=== PATIENT | male | born 1955 | race Caucasian/White ===

== ENCOUNTER 2024-08-04 10:41 | Outpatient (NON) | payer MEDICARE, SELFPAY ==
--- OUTSIDE RECORDS SUMMARY | 2024-08-04 11:51 | XMS_ITS | Encounter Summary ---
Author Organization [facility] Address [facility] [place] [address] Care Team Providers Care Rug Cleaning Supervisor Name Role Phone Jr Penn MD Primary Care Provider [phone] Jr Penn MD Primary Care Provider [phone] Jr Penn MD Primary Care Provider [phone] Danielle Lindsey NP Primary Care Provider + Km Varner MD Unavailable Unavailable Encounter Details Date Type Department Care Team (Late st Contact Info) Description 08/22/2013 Abstract [facility] Conversion Md, Generic ConversionMD Social History Tobacco Use Types Packs/Day Years Used Date Smoking Tobacco: Never Assessed Sex and Gender Information Value Date Recorded Sex Assigned at Male 06/30/2024 11:27 AM REFRIGERATION TECH Legal Sex Male 7:32 PM CDT Gender Identity Not on file Sexual Orientation Not on file documented as of this encounter Plan of Treatment Upcoming Encounters Date Type Department Care Team (Late st Contact Info) Description 09/15/2024 11:00 AM CDT Office Visit [facility] [address] [place] [address] Danielle Lindsey NP [address] [facility] [address] [place] [address] documented as of this encounter Visit Diagnoses Not on filedocumented in this encounter Care Teams Rug Cleaning Supervisor Relationship Specialty Start Date End Date Jr Penn MD PCP - General 04/19/14 11/13/21 Jr Penn MD PCP - General 01/04/14 04/18/14 Jr Penn MD PCP - General 07/15/13 01/03/14 Danielle Lindsey NP [address] [facility] [address] [place] [address] PCP - General Nurse Practitioner [facility] 11/14/21 Km Varner MD [address] [facility] [address] [place] [address] Consulting Physician UROLOGY 03/18/22 03/15/23 documented as of this encounter
--- OUTSIDE RECORDS SUMMARY | 2024-08-04 11:51 | XMS_ITS | CONTINUITY OF CARE DOCUMENT ---
Author Name bam kuhn Address Unknown Organization [facility] Address [address] [facility] [address] [place] [address] Phone [phone] Care Team Providers Care Client Technical Specialist Name Role Phone Luis Felipe ANAYA, Ana Unavailable PJ ANAYA, GREGORY Hoyt Unavailable [phone] SHANIQUE ANAYA, SANDRA BYNUM Unavailable [phone] PROBLEMS Condition Status Date Provider Notes Family History of Hypertension: active Keila Renteria OIL WELL SERVICES DISPATCHER HTN active Yajaira Renteria OIL WELL SERVICES DISPATCHER Preoperative cardiovascular evaluation active Yajaira Renteria OIL WELL SERVICES DISPATCHER ENCOUNTERS Date Type Provider Location Encounter Diag nosis - In-person encounter Office Visit Deep Russell MD [place] [facility] Family History of Hypertension:HTNPreope rative cardiovascular evaluation VITAL SIGNS Date Observation Value Provider Body Mass Index (Ratio) 37.73 kg/m2 Katya Russell MD blood pressure, cuff size large Ke rri Carlos blood pressure, diastolic 86 mm[Hg] Ke rri Carlos blood pressure, systolic 136 mm[Hg] Modesta Gonzalez oxygen saturation, oximetry 97 % Eugenia Gonzalez respiratory rate E&M 18 /min Eugenia arenas pulse rate 92 /min Eugenia Gross lder weight E&M 263 [lb_av] Eugenia Gross lder height E&M 70 [in_i] Eugenia Caicedotimi lder ALLERGIES Allergy Name Onset Date Reaction Criticality Status CATS Low Criticality active PCN Low Criticality active HISTORY OF MEDICATION USE Medication Status Instructions Dates Provider Indications Com ments TESTIM GEL active use daily Eugenia Hammondeduarda LASIX 40 MG ORAL TABLET active one tab by mouth daily Eugenia Hammondeduarda LISINOPRIL 10 MG ORAL TABLET active ONE TAB. DAILY Eugenia Hammondeduarda SILDENAFIL CITRATE 20 MG ORAL TABLET active TAKE 1 TABLET NEEDED FOR SEXUAL ACTIVITY Eugenia Kendrickattiladianna #50, 50 days supply, Prescribed by SANDRA BAY, Filled 04/27/2020 SOCIAL HISTORY Date Observation Value Provider number of grandchildren Deep Renteria NP alcohol use, average drinks per day social Yajaira Renteria NP alcohol use yes Yajaira Ayon l NATALY social history E&M S moking History: P ashwin has never smoked. Yajaira Renteria NP social history reviewed E&M revi ewed - no changes required Yajaira Renteria NP drug use no Yajaira Betancourta l OIL WELL SERVICES DISPATCHER smoking status Never smoker Eugenia arredondo FAMILY HISTORY Family Member Condition Mother Negative FH of Coron caridad Artery Disease Father Family History of Hy pertension: INSURANCE PROVIDERS Payer name Policy type / Coverage type [place] red green party ID UHC MEDICARE COMPLETE HMO Other [id number] ADVANCE DIRECTIVES Name Date DISCUSSED - NO DECISION MADE TREATMENT PLAN Date Name Performer Cardiology Miguel Cervantes nt : B P today: 136/86 His updated medication list for this problem includes: Lasix 40 Mg Oral Tablet (Furosemide) ..... One tab by mouth daily Lisinopril 10 Mg Oral Tablet (Lisinopril) ..... One tab. daily Yajaira Renteria NP Cardiology Miguel Cervantes nt :The patient is not experiencing any symptoms and is low risk for upcoming orthopedic surgery. Yajaira Renteria NP HISTORY OF PROCEDURES Procedure Date Procedure Name Provider Procedure Notes S tatus EKG Deep Russell MD completed
--- OUTSIDE RECORDS SUMMARY | 2024-08-04 11:51 | XMS_ITS | Clinical Summary ---
Author Organization [facility] Address [address] [place] [address] Care Team Providers Care Ship Boss Name Role Phone Danielle Lindsey Genaro FOIL WRAPPER Primary Care Provider Allergies Active Allergy Reactions Criticality Noted Date Comments Cat Hair Standardized Allergenic Extract Shortness of breath High 05/02/2020 Hydroxychloroquine Rash High 11/09/2023 Metformin Diarrhea Medium 10/27/2023 Penicillins Anaphylaxis High 01/11/2023 All cillins Medications lisinopriL (PRINIVIL,ZESTRI L) 10 mg tabletIndication s:hypertension Take 1 tablet (10 mg total) by mouth every morning 0 Active rosuvastatin (CRESTOR) 10 mg tabletIndication s:hyperlipidemia Take 1 tablet (10 mg total) by mouth every morning 3 Active Testim 50 mg/5 gram (1 %)Indications:ho rmone replacement Place 1 each on the skin every morning 0 Active metFORMIN (GLUCOPHAGE) 500 mg tabletIndication s:type 2 diabetes mellitus Take 2 tablets (1,000 mg total) by mouth narrow gauge brakeman before breakfast 4 Active clobetasoL (TEMOVATE) 0.05 % ointment APPLY TO AREAS OF PSORIASIS ON BODY TWICE A DAY NEEDED FOR FLARES. AVOID FACE, ARMPITS AND GROIN 4 Active calcipotriene (DOVONOX) 0.005 % solutionIndicati ons:Plaque Psoriasis Apply 1 Application topically 2 (two) times a day 4 Active ofloxacin (FLOXIN) 0.3 % otic solution Administer 5 drops into the left ear 2 (two) times a day Start 1 week after surgery and continue until follow up. 15 mL 3 4 Active ciprofloxacin-de xAMETHasone (CIPRODEX) otic suspension Administer 4 drops into the left ear 2 (two) times a day 7.5 mL 3 4 Active clindamycin-chris oyl peroxide (BENZACLIN) gel Apply topically 2 (two) times a day 4 Active Trulicity 0.75 mg/0.5 mL pen injector Inject 0.5 mL (0.75 mg total) under the skin 2 (two) times a week 4 Active methotrexate 2.5 mg tablet Take 3 tablets (7.5 mg total) by mouth once a week Active predniSONE (DELTASONE) 5 mg tablet Take 2 tablets (10 mg) by mouth daily 4 Active Active Problems Problem Noted Date Diagnosed Date Conductive hearing loss of l eft ear with unrestricted hearing of right ear 07/21/2023 Left chronic otitis media 07/21/2023 Lumbago 02/18/2015 Essential hypertension 02/18/2015 Polymyalgia rheumatica 02/18/2015 Edema of lower extremity 02/18/2015 Encounters Date Type Department Care Team Description 07/17/2024 11:20 AM CALENDER LET OFF OPERATOR Office [facility] [address] [facility] [address] [facility] [address] [place] [address] Codi Smith MD Obstructive sleep apnea syndrome (Primary Dx); Intolerance of continuous positive airway pressure (CPAP) ventilation from Last 3 Months Immunizations Immunization Administration Dates Next Due Influenza, Quadrivalent, Hig h Dose, Preservative Free, Intrr 02/25/2022 Influenza, Quadrivalent, Spl it, Preservative Free, Intramuscular 03/06/2020 Influenza, Unspecified 01/26/2024,02/05/2021 Visual IQ SARS-CoV-2 Monovalent Vaccination (12+ Yrs) PURPLE 01/26/2024,07/29/2020 Pneumococcal Conjugate PCV 13 02/05/2021 Pneumococcal Conjugate Pcv20 02/24/2022 Tdap 07/29/2013 ZOSTER Recombinant 08/08/2022,06/09/2022 Surgical History Surgery Date Site/Laterality Comments 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 2-4 times a month 07/21/2023 Q2: How many drinks containi ng alcohol do you have on a typical day when you are drinking? 1 or 2 07/21/2023 Q3: How often do you have si x or more drinks on one occasion? Never 07/21/2023 Personal Safety Answer Date Recorded Have you ever been in or are you currently in a harmful physical or emotional relationship or is someone making you feel afraid or unsafe? Denies 07/21/2023 Sex and Gender Information Value Date Recorded Sex Assigned at Not on file Legal Sex Male 5:53 AM CALENDER LET OFF OPERATOR Gender Identity Not on file Sexual Orientation Not on file Obstetrics History Last Filed Vital Signs Vital Sign Reading Time Taken Comments Blood Pressure 134/70 07/21/2023 1:20 PM CALENDER LET OFF OPERATOR Pulse 87 07/21/2023 1:20 PM CALENDER LET OFF OPERATOR Temperature 36.1 C (97 F) 07/21/2023 12:50 PM CALENDER LET OFF OPERATOR Respiratory Rate 24 07/21/2023 1:20 PM CALENDER LET OFF OPERATOR Oxygen Saturation 94% 07/21/2023 1:20 PM CALENDER LET OFF OPERATOR Inhaled Oxygen Concentration - - Weight 118.8 kg (261 lb 12.8 oz) 2024 11:06 AM CALENDER LET OFF OPERATOR Height 177.8 cm (5' 10 ) 07/17/2024 11: 06 AM CALENDER LET OFF OPERATOR Body Mass Index 37.56 07/17/2024 11:06 AM CALENDER LET OFF OPERATOR Plan of Treatment Health Maintenance Due Date Last Done Comments Colon Cancer Screening-Colonoscopy 1955 Depression Screening 1955 Hepatitis C Screening 1955 Prostate Cancer Screening-PSA 1955 Hepatitis B Screening 07/23/1973 Well Visit 65+ 07/23/2020 Covid-19 Vaccine (2023-2 5 season) 2024 01/26/2024, 03/13/2022, 10/23/2021, Additional history exists Fall Risk Assessment 07/20/2024 07/21/2023 DTaP/Tdap/Td Vaccine (3 - Td or Tdap) 03/29/2034 03/29/2024, 07/29/2013 Pneumococcal vaccine 65+ Completed 02/24/2022, 01/16 Zoster Vaccine Completed 08/08/2022, 06/09/2022 Influenza Vaccine Completed 01/26/2024, , 02/05/2021, Additional history exists Medical Devices Implanted Type Area Senior Gl Accountant Device Identifier Shelf Expiration Date Model / Serial / Lot Implantech Alliedsil 3x2in Nonreinforced Permanent Implantable Thk.04in 23-700-40 - [id number] Implanted:Qty: 1 on 02/15/2023 by Ino Laird MD at [facility] Left: Ear Implantech [id number] 01/20/2027 23-700-40 / / [id number] [employer] Prosth Ossicular 3.0mm 0.75-5.75mm Ti Cntr [place] Concise Prtl 655-075 - [id number] Implanted:Qty: 1 on 07/21/2023 by Ino Laird MD at [facility] Left: Ear [employer] [id number] 07/16/2027 655-075 / / [id number] Insurance [facility] MEDICARE ADVANTAGE UHC MEDICARE ADVANTAGE Care Teams Ship Boss Relationship Specialty Start Date End Date Danielle Lindsey NP [address] [address] PCP - General Family Medicine 05/04/24
--- OUTSIDE RECORDS SUMMARY | 2024-08-04 11:51 | XMS_ITS | Encounter Summary ---
Author Organization [facility] Address [facility] [place] [address] Care Team Providers Care System Safety Engineer Name Role Phone Jr Penn MD Primary Care Provider [phone] Jr Penn MD Primary Care Provider [phone] Jr Penn MD Primary Care Provider [phone] Danielle Lindsey NP Primary Care Provider + Km Varner MD Unavailable Unavailable Encounter Details Date Type Department Care Team (Late st Contact Info) Description 08/16/2013 Abstract [facility] Conversion Md, Generic ConversionMD Social History Tobacco Use Types Packs/Day Years Used Date Smoking Tobacco: Never Assessed Sex and Gender Information Value Date Recorded Sex Assigned at Male 06/30/2024 11:27 AM TITLE CLERK Legal Sex Male 7:32 PM CDT Gender Identity Not on file Sexual Orientation Not on file documented as of this encounter Plan of Treatment Upcoming Encounters Date Type Department Care Team (Late st Contact Info) Description 09/15/2024 11:00 AM CDT Office Visit [facility] [address] [place] [address] Danielle Lindsey NP [address] [facility] [address] [place] [address] documented as of this encounter Visit Diagnoses Not on filedocumented in this encounter Care Teams System Safety Engineer Relationship Specialty Start Date End Date Jr Penn MD PCP - General 04/19/14 11/13/21 Jr Penn MD PCP - General 01/04/14 04/18/14 Jr Penn MD PCP - General 07/15/13 01/03/14 Danielle Lindsey NP [address] [facility] [address] [place] [address] PCP - General Nurse Practitioner [facility] 11/14/21 Km Varner MD [address] [facility] [address] [place] [address] Consulting Physician UROLOGY 03/18/22 03/15/23 documented as of this encounter
--- OUTSIDE RECORDS SUMMARY | 2024-08-04 11:51 | XMS_ITS | Clinical Summary ---
Author Organization [facility] Address [facility] [place] [address] Care Team Providers Care Driver Trainer Name Role Phone Rosalia Daniellericardo Dominguez NP Primary Care Provider + Allergies Active Allergy Reactions Criticality Noted Date Comments Amoxicillin Anaphylaxis,GI Upset High 08/31/2019 Cat Dander Shortness of Breath High 05/02/2020 Dander Hives,Rash Low 12/28/2016 Hydroxychloroquine Rash High 11/09/2023 Metformin Diarrhea Medium 10/27/2023 Penicillins Anaphylaxis High 05/02/2020 Medications ibuprofen 600 MG tablet 2020 Active clobetasol (TEMOVATE) 0.05 % ointment APPLY TO AREAS OF PSORIASIS ON BODY TWICE A DAY NEEDED FOR FLARES. AVOID FACE, ARMPITS AND GROIN 2023 Active clobetasol (TEMOVATE) 0.05 % external solution APPLY TO SCALP TWICE A DAY FOR 2 WEEKS, THEN TWICE A DAY ON THE WEEKENDS. DO NOT USE DAILY. Active Blood Glucose Monitoring Suppl (BLOOD GLUCOSE MONITOR SYSTEM) w/Device KitIndications:Type 2 diabetes mellitus with diabetic neuropathy, without long-term current use of insulin ([facility]) BID for 1 week then daily (dispense what insurance covers) 1 kit 2023 Active Glucose Blood (IGLUCOSE TEST STRIPS) test stripIndications:Type 2 diabetes mellitus with diabetic neuropathy, without long-term current use of insulin ([facility]) BID for 1 week then daily (dispense what insurance covers) 100 strip 2 2023 Active Lancets Ultra Thin 30G MiscIndications:Type 2 diabetes mellitus with diabetic neuropathy, without long-term current use of insulin ([facility]) BID for 1 week then daily (dispense what insurance covers) 100 each 2 2023 Active sildenafil (VIAGRA) 50 MG tabletIndications:Test icular hypofunction Take 1 tablet (50 mg total) by mouth daily as needed for Erectile Dysfunction. 10 tablet 5 2023 Active lisinopril (PRINIVIL) 10 MG tabletIndications:Esse ntial (primary) hypertension Take 1 tablet (10 mg total) by mouth daily. 90 tablet 3 2023 Active rosuvastatin (CRESTOR) 10 MG tabletIndications:Pure hypercholesterolemia Take 1 tablet (10 mg total) by mouth daily. 90 tablet 3 2023 Active clindamycin-benzoyl peroxide (BENZACLIN) gel Apply topically 2 (two) times daily. 2023 Active methotrexate (TREXALL) 2.5 MG tablet Take 3 tablets (7.5 mg total) by mouth once a week. Active tiZANidine (ZANAFLEX) 4 MG tabletIndications:E Commerce Manager dereck pain of both shoulders Take 1 tablet (4 mg total) by mouth every 8 (eight) hours as needed. 30 tablet 2024 Active Additional Information Patient not taking.Reported on 08/02/2024 testosterone (ANDROGEL) 50 MG of testosterone/5 GM (1%) Gel gelIndications:Hypogon adism in male PLACE 1 PACKET (50 MG OF TESTOSTERONE TOTAL) ONTO THE SKIN DAILY. 150 g 2 2024 Active HYDROcodone-acetaminop hen (NORCO) 5-325 MG tabletIndications:E Commerce Manager dereck Pain Take 1-2 tablets by mouth every 8 (eight) hours as needed for Pain. Indications: Chronic Pain 40 tablet 2024 Active dulaglutide (TRULICITY) 1.5 MG/0.5ML injectionIndications:T ype 2 diabetes mellitus with diabetic neuropathy, without long-term current use of insulin ([facility]) INJECT 1.5 MG INTO THE SKIN ONCE A WEEK. 2 mL 2 2024 Active Calcipotriene (DOVONEX) 0.005 % topical solution APPLY TO AFFECTED AREAS OF SCALP TWICE DAILY FOR 2 WEEKS, THEN APPLY TWICE DAILY WEDNESDAY-08/02 Discontinued ciprofloxacin-dexameth asone (CIPRODEX) otic suspension Place 4 drops in ear(s) 2 (two) times daily. 08/02 Discontinued predniSONE (DELTASONE) 2.5 mg tablet Take 3 tablets (7.5 mg total) by mouth daily. 08/02 Discontinued testosterone (ANDROGEL) 50 MG of testosterone/5 GM (1%) Gel gelIndications:Hypogon adism in male PLACE 1 PACKET (50 MG OF TESTOSTERONE TOTAL) ONTO THE SKIN DAILY. 150 g 3 07/31 Discontinued dulaglutide (TRULICITY) 1.5 MG/0.5ML injection INJECT 1.5 MG INTO THE SKIN ONCE A WEEK. 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 07/12/2024 Conductive hearing loss of l eft ear with unrestricted hearing of right ear 07/21/2023 Left chronic otitis media 07/21/2023 Eczema 05/20/2023 H/O tympanomastoidectomy 02/17/2023 Pure hypercholesterolemia 08/19/2022 Type 2 diabetes mellitus ([facility]) 08/11 Morbid (severe) obesity due to excess calories 1 05/18/2021 Osteoarthrosis 08/29/2021 Family history of cardiovascular disease 020 Essential (primary) hypertension 12/28/2016 Edema of lower extremity 02/18/2015 Lumbago 02/18/2015 Polymyalgia rheumatica ([facility]) 01/18/2015 Testicular hypofunction 12/26/2012 Resolved Problems Problem Noted Date Diagnosed Date Resolved Date Acute torn meniscus 08/29/2021 03/18/20 22 Encounter for preprocedural cardiovascular examination 05/02/2020 09/01/2021 Family history of hypertension 05/02/2020 01/26/2024 Encounters Date Type Department Care Team Description 08/02/2024 11:40 AM CDT Office Visit [facility] [address] [place] [address] Danielle Lindsey, NATALY Knee Pain (Pt here for ongoing knee pain.) 08/02/2024 Travel 07/27/[address] [address] Danielle Lindsey, NATALY Medication Request; Joint Pain 2024 Scan [facility] Scanned, [facility] 07/21/2024 Scan [facility] Scanned, [facility] 07/19/2024 Scan [facility] Scanned, [facility] 07/17/2024 Scan [facility] Scanned, [facility] 07/12/2024 9:40 AM MOLDING MACHINE OPERATOR Office Visit [address] [address] Danielle Lindsey, NATALY Follow Up (Pt here today for leg edema.) 07/11/2024 12:10 PM MOLDING MACHINE OPERATOR Laboratory Only [facility] - [address] [address] Kwabena Maritn MD 07/11/2024 Travel 06/30/2024 11:40 AM MOLDING MACHINE OPERATOR Office Visit [address] [address] Danielle Lindsey, NATALY Shoulder Pain (Rt, NKI, couple months) 06/30/2024 Travel 06/29/2024 10:45 AM MOLDING MACHINE OPERATOR - 06/29/2024 11:59 PM MOLDING MACHINE OPERATOR Hospital Encounter [facility] [address] [place] [address] Zane Salazar MD Discharge Disposition: Home or Self Care (Routine Discharge) 06/29/2024 Orders Only [facility] [address] [place] [id number] Zane Salazar MD 06/29/2024 Orders Only [facility] [address] [place] [address] Zane Salazar MD 06/29/2024 Travel from Last 3 Months Immunizations Name Administration Dates Next Due Fluzone 6 Months+ Quad (0.5 mL Prefilled Syringe) 03/06/2020 Fluzone High Dose - >Age 65 (Prefilled Syringe) 02/08/2023 Influenza Adult (Generic) 01/26/2024,04/2022,02/05/2021,2019 PFIZER COVID-19 (12+) MRNA, LNP-S, PF, EFREN-SUCROSE, 30 MCG/0.3 ML (COMIRNATY) 02/08/2023 PFIZER COVID-19 (MORRISSEY CAP), MRNA, LNP-S, PF, 30 MCG/0.3 ML EFREN-SUCROSE, IM 10/23/2021 PFIZER COVID-19 (ORIGINAL FORMULATION, PURPLE CAP) mRNA, LNP-S, PF, 30 MCG/0.3 ML DOSE 01/26/2024,02/19/2021,08/09/2020,2020,07/19/2020 PFIZER COVID-19 BIVALENT (12 +) mRNA, LNP-S, PF, 30 MCG/0.3 ML DOSE 03/13/2022 Pneumococcal (Prevnar 13) 02/05/2021 Pneumococcal (Prevnar 20) 02/24/2022 RSV VACCINE, UNSPECIFIED 03/29/2024 Shingrix 08/08/2022,06/09/2022 Tdap (Adacel) 03/29/2024 Tdap (Generic) 07/29/2013 Family History Medical History Relation Comments Cancer Father Hypertension Father Prostate Cancer Father Cancer Maternal Grandfather No Known Problems Mother Relation Status Comments Father Maternal Grandfather Mother Social History Tobacco Use Types Packs/Day Years Used Date Smoking Tobacco: Never Passive Smoke Exposure: Past Smokeless Tobacco: Never Tobacco Cessation:Counseling Given: No Alcohol Use Standard Drinks/Week Comments Yes 25 (1 standard drink = 0.6 oz pu re alcohol) couple x/week PHQ-2 Answer Date Recorded Patient Health Questionnaire-2 Score 0 06/30/2024 Sex and Gender Information Value Date Recorded Sex Assigned at Male 06/30/2024 11:27 AM MOLDING MACHINE OPERATOR Legal Sex Male 7:32 PM CDT Gender Identity Not on file Sexual Orientation Not on file Last Filed Vital Signs Vital Sign Reading Time Taken Comments Blood Pressure 134/72 08/02/2024 12:10 PM CDT Pulse 81 08/02/2024 11:37 AM CDT Temperature 37.2 C (98.9 F) 08/02/2024 11:37 AM CDT Respiratory Rate 18 08/02/2024 11:37 AM CDT Oxygen Saturation 96% 08/02/2024 11:37 AM CDT Inhaled Oxygen Concentration - - Weight 115.7 kg (255 lb) 08/02/2024 11:37 AM CDT Height 177.8 cm (5' 10 ) 08/02/2024 11:37 AM CDT Body Mass Index 36.59 08/02/2024 11:37 AM CDT Plan of Treatment Upcoming Encounters Date Type Department Care Team (Late st Contact Info) Description 09/15/2024 11:00 AM CDT Office Visit [facility] [address] [place] [phone] Danielle Lindsey NP [address] [facility] [address] [place] [address] Health Maintenance Due Date Last Done Comments Kidney Health Evaluation 1955 Hepatitis C 07/23/1973 Annual Medicare Wellness Visit 07/23/2020 COVID-19 Vaccine ( season) 2024 01/26/2024, 02/08/2023, 03/13/2022, Additional history exists Lipid Panel 09/15/2024 09/16/2023, 07/16, 08/04/2022, Additional history exists Hemoglobin A1C 11/01/2024 05/03/2024, 01/15, 10/27/2023, Additional history exists Diabetes: Retinopathy Eye Exam 07/18/2025 07/19/2023 Colorectal Cancer Screening Colonoscopy (10 Years) 04/20/2027 04/20/2017 DTaP, Tdap and Td Vaccines (3 - Td or Tdap) 03/29/2034 03/29/2024, 07/29/2013 Pneumococcal Vaccine: 65+ Years Completed 02/24/2022, 02/05/2021 Zoster Vaccines Completed 08/08/2022, 06/09/2022 Influenza Adult Completed 01/26/2024, 01/16, 02/25/2022, Additional history exists RSV Immunization or 60+ Years Completed 03/29/2024 PHQ-2 (Physician [place]) Completed 06/30/2024 Meningococcal B Vaccine Aged Out No l onger eligible based on patient's age to complete this topic Meningococcal Vaccine Aged Out No estella cristina eligible based on patient's age to complete this topic RSV Immunizations Under 20 Months Aged Out No longer eligible based on patient's age to complete this topic Procedures Procedure Name Priority Date/Time Associated Diagnosis Comments PROSTATIC SPECIFIC ANTIGEN Routine 07/11/2024 10:43 AM MOLDING MACHINE OPERATOR COMPREHENSIVE METABOLIC PANEL Routine 06/29/2024 10:55 AM MOLDING MACHINE OPERATOR Hypogonadism male HEMATOCRIT Routine 06/29/2024 10:55 AM MOLDING MACHINE OPERATOR Hypogonadism male ESTRADIOL Routine 06/29/2024 10:55 AM MOLDING MACHINE OPERATOR Hypogonadism male TESTOSTERONE, TOTAL Routine 06/29/2024 10:55 AM MOLDING MACHINE OPERATOR Hypogonadism male HEMOGLOBIN, GLYCOSYLATED Routine 05/03/2024 Type 2 diabetes mellitus with diabetic neuropathy, without long-term current use of insulin ([facility]) LIPID PANEL Routine 09/16/2023 9:01 AM CDT Pure hypercholesterolemia DIABETIC RETINOPATHY EXAM (NEGATIVE)(SCAN ORDER) Routine 07/19/2023 COLONOSCOPY GENERIC (SCAN ORDER) Routine 04/20/2017 12:00 AM MOLDING MACHINE OPERATOR from Last 3 Months or Most Recently Relevant to Health Maintenance Results * PROSTATIC SPECIFIC ANTIGEN (07/11/2024 10:43 AM MOLDING MACHINE OPERATOR) PSA 1.40 <4.0 ng/ml 07/11/2024 11:57 AM MOLDING MACHINE OPERATOR [facility] Comment: Test was performed using the Siemens method. Results obtained with other assay methods or kits cannot be used interchangeably with results obtained by the Siemens method. 07/11/2024 10:4 3 AM MOLDING MACHINE OPERATOR Kwabena Martin MD LABORATORY Final Result [facility] [address] [place] [address], [place] [phone] * (ABNORMAL) COMPREHENSIVE METABOLIC PANEL (06/29/2024 10:55 AM MOLDING MACHINE OPERATOR) Pathologist [facility] GLUCOSE 263(H) 70 - 99 MG/DL 06/29/2024 12:00 PM [facility] BUN 23(H) 7 - 18 MG/DL 06/29/2024 12:00 PM [facility] CREATININE S/P/B 1.00 0.7 - 1.3 MG/DL 06/29/2024 12:00 PM [facility] SODIUM S/P/B 139 136 - 145 MMOL/L 06/29/2024 12:00 PM [facility] POTASSIUM S/P/B 4.7 3.5 - 5.1 MMOL/L 06/29/2024 12:00 PM [facility] CHLORIDE S/P/B 103 100 - 108 MMOL/L 06/29/2024 12:00 PM [facility] CO2 27.2 21 - 32 MMOL/L 06/29/2024 12:00 PM [facility] CALCIUM S/P/B 9.6 8.5 - 10.1 MG/DL 06/29/2024 12:00 PM [facility] BILIRUBIN TOTAL S/P/B 0.4 0.2 - 1.2 MG/DL 06/29/2024 12:00 PM [facility] Comment: THIS ASSAY IS NOT RECOMMENDED FOR PATIENTS UNDERGOING TREATMENT WITH ELTROMBOPAG DUE TO THE POTENTIAL FOR FALSELY ELEVATED RESULTS. TOTAL PROTEIN S/P/B 6.8 6.4 - 8.2 G/DL 06/29/2024 12:00 PM [facility] ALBUMIN S/P/B 3.6 3.4 - 5.0 G/DL 06/29/2024 12:00 PM [facility] AST 20 15 - 37 U/L 06/29/2024 12:00 PM [facility] ALT 43 16 - 60 U/L 06/29/2024 12:00 PM [facility] ALKALINE PHOSPHATASE S/P/B 53 50 - 136 U/L 06/29/2024 12:00 PM [facility] ANION GAP 8.8 5 - 15 MMOL/L 06/29/2024 12:00 PM [facility] BUN CREATININE RATIO 23.0 6 - 26 06/29/2024 12:00 PM [facility] A/G RATIO 1.1 1.0 - 2.0 RATIO 06/29/2024 12:00 PM [facility] GFR ESTIMATE 82(L) >90 ML/MIN/1.7 3 M2 06/29/2024 12:00 PM [facility] Comment: NOTE: eGFR is not calculated for patients <18 years of age. This is an estimated GFR calculation using the new CKD EPI creatinine equation without race and so does not require a correction factor for race. This estimated GFR should not be used for calculating drug doses. 06/29/2024 10:5 5 AM MOLDING MACHINE OPERATOR us Zane Salazar MD LABORATORY Final Res ult [facility] [address] [place] [address], [place] [phone] * HEMATOCRIT (06/29/2024 10:55 AM MOLDING MACHINE OPERATOR) HCT 49.7 43.0 - 54.0 % 06/29/2024 11:31 AM MOLDING MACHINE OPERATOR [facility] 06/29/2024 10:5 5 AM MOLDING MACHINE OPERATOR Zane Salazar MD LABORATORY Final Res ult [facility] [address] [place] [address], * (ABNORMAL) ESTRADIOL (06/29/2024 10:55 AM MOLDING MACHINE OPERATOR) Pathologist [facility] ESTRADIOL (E2) 84(H) <=39 pg/mL 07/04/2024 3:44 AM MOLDING MACHINE OPERATOR [facility] Comment: Reference range established on post-pubertal patient population. No pre-pubertal reference range established using this assay. For any patients for whom low Estradiol levels are anticipated (e.g. males, pre-pubertal children, and hypogonadal/post-menopausal females), the [employer] Estradiol, Ultrasensitive, LCMSMS assay is recommended (order code 51571). Please note: Patients being treated with the drug fulvestrant [Faslodex(R)] have demonstrated significant interference in immunoassay methods for estradiol measurement. The cross reactivity could lead to falsely elevated estradiol test results leading to an inappropriate clinical assessment of estrogen status. [facility] order code [id number], Ultrasensitive LC/MS/MS demonstrates negligible cross reactivity with fulvestrant. Test Performed by [facility], [facility], [address] [place], [place] Romeo Michaud M.D., Ph.D., Director of Laboratories , [place] [id number] 06/29/2024 10:5 5 AM MOLDING MACHINE OPERATOR Zane Salazar MD LABORATORY Final Res ult [facility] [address] [place], [place] , [place] [phone] * TESTOSTERONE, TOTAL (06/29/2024 10:55 AM MOLDING MACHINE OPERATOR) TESTOSTERONE TOTAL 633 250 - 1,100 ng/dL 07/03/2024 11:54 AM MOLDING MACHINE OPERATOR [facility] Comment: Men with clinically significant hypogonadal symptoms and testosterone values repeatedly in the range of the 200-300 ng/dL or less, may benefit from testosterone treatment after adequate risk and benefits counseling. For additional information, please refer to http://education.[facility]/faq/ [email or web address] (This link is being provided for informational/ educational purposes only.) This test was developed and its analytical performance characteristics have been determined by [employer] [place], [place]. It has not been cleared or approved by the U.S. Food and Drug Administration. This assay has been validated pursuant to the CLIA regulations and is used for clinical purposes. Test Performed by [facility], [facility], [address] [place] [address] Romeo Michaud M.D., Ph.D., Director of Laboratories , CLIA [id number] 06/29/2024 10:5 5 AM MOLDING MACHINE OPERATOR Zane Salazar MD LABORATORY Final Res ult [facility] [address] , [place] [phone] * A1C (BACK OFFICE) (05/03/2024) HGB A1C 8.9 % DEVON HUDSON ([id number]), ANABEL 05/03/2024 Danielle Lindsey NP LABORATORY Final Re sult [facility]-ST[facility]EN HUDSON ([id number]), [place] [address] [place] [id number], * LIPID PANEL (09/16/2023 9:01 AM CDT) CHOLESTEROL 135 <200 MG/DL 09/16/2023 10:02 AM CDT [facility] TRIGLYCERIDES 68 <150 MG/DL 09/16/2023 10:02 AM T [facility] HDL 43 >40.0 MG/DL 09/16/2023 10:02 AM T [facility] LDL (CALCULATED) 78 <100 MG/DL 09/16/19 10:02 AM T [facility] NON HDL CHOLESTEROL 92 <130 MG/DL 09/15 10:02 AM T [facility] Comment: NOTE: WHEN THE TRIGLYCERIDES ARE >200 mg/dL, NON HDL C IS A SECONDARY TARGET OF THERAPY, WITH A GOAL 30 mg/dL HIGHER THAN THE IDENTIFIED LDL C GOAL. CHOL/HDL RATIO 3.1 0.0 - 4.5 09/16/2023 10:02 AM T [facility] VLDL CALCULATION 14 5 - 55 MG/DL 09/16/2023 10:02 AM [facility] LIPID INTERPRETATION 09/16/2023 10:02 AM [facility] Comment: [facility] REPORT RECOMMENDATIONS: ADULT CHILD LOW RISK: CHOLESTEROL <200 <170 TRIGLYCERIDE <150 --- HDL >=60 --- LDL <100 <110 BORDERLINE: CHOLESTEROL 200-239 170-199 TRIGLYCERIDE 150-199 --- HDL 40-59 --- LDL 100-159 110-129 HIGH RISK: CHOLESTEROL >=240 >=200 TRIGLYCERIDE >=200 --- HDL <40 --- LDL >=160 >=130 09/16/2023 9:01 AM CDT Danielle iLndsey NP LABORATORY Final Re sult [facility] () [facility] [address] [place] [address], [place] [phone] * DIABETIC RETINOPATHY EXAM (NEGATIVE) (07/19/2023) us Doc [facility] Scanned SCANNING Final Resu lt [facility] * COLONOSCOPY (04/20/2017 12:00 AM MOLDING MACHINE OPERATOR) 04/20/2017 us Documents Scanned SCANNING Final Result Performing Organization Address [facility]/ZIP Co de Phone Number FRANKLIN-STIVEN SUBRAMANIAN from Last 3 Months or Most Recently Relevant to Health Maintenance Insurance [place] [address] Care Teams Driver Trainer Relationship Specialty Start Date End Date Danielle Lindsey NP [address] [facility] [address] [place] [address] PCP - General Nurse Practitioner Family 11/14/21
--- OUTSIDE RECORDS SUMMARY | 2024-08-04 11:51 | XMS_ITS | Referral Summary ---
Author Organization [facility] Address [address] [place] [address] Care Team Providers Care Banana Grader Name Role Phone Danielle Lindsey Genaro SENIOR SOLUTIONS ARCHITECT Primary Care Provider Encounters Date Type Department Care Team Description 07/17/2024 11:20 AM POWER HAIR CLIPPER Office Visit [facility]) - [facility] [address] [facility] Building [address] [place] [address] Codi Smith MD Obstructive sleep apnea syndrome (Primary Dx); Intolerance of continuous positive airway pressure (CPAP) ventilation from Last 3 Months Allergies Active Allergy Reactions Criticality Noted Date [...] 2 tablets (1,000 mg total) by mouth technical solution architect before breakfast 4 Active clobetasoL (TEMOVATE) 0.05 [...] rheumatica 02/18/2015 Edema of lower extremity 02/18/2015 Immunizations Immunization Administration Dates Next Due Influenza, Quadrivalent, Hig h Dose, Preservative Free, Intrr 02/25/2022 Influenza, Quadrivalent, Spl it, Preservative Free, Intramuscular 03/06/2020 Influenza, Unspecified 01/26/2024,02/05/2021 Propanc SARS-CoV-2 Monovalent Vaccination (12+ Yrs) PURPLE 01/26/2024,07/29/2020 Pneumococcal Conjugate PCV 13 02/05/2021 Pneumococcal Conjugate Pcv20 02/24/2022 Tdap 07/29/2013 ZOSTER Recombinant 08/08/2022,06/09/2022 Social History Tobacco Use Types Packs/Day Years [...] on file Legal Sex Male 5:53 AM POWER HAIR CLIPPER Gender Identity Not on file Sexual Orientation Not on file Last Filed Vital Signs Vital Sign Reading Time Taken Comments Blood Pressure 134/70 07/21/2023 1:20 PM POWER HAIR CLIPPER Pulse 87 07/21/2023 1:20 PM POWER HAIR CLIPPER Temperature 36.1 C (97 F) 07/21/2023 12:50 PM POWER HAIR CLIPPER Respiratory Rate 24 07/21/2023 1:20 PM POWER HAIR CLIPPER Oxygen Saturation 94% 07/21/2023 1:20 PM POWER HAIR CLIPPER Inhaled Oxygen Concentration - - Weight 118.8 kg (261 lb 12.8 oz) 2024 11:06 AM POWER HAIR CLIPPER Height 177.8 cm (5' 10 ) 07/17/2024 11: 06 AM POWER HAIR CLIPPER Body Mass Index 37.56 07/17/2024 11:06 AM POWER HAIR CLIPPER Plan of Treatment Not on file Medical Devices Implanted Type Area Seed Expert Device Identifier Shelf Expiration Date Model / Serial / Lot Implantech [employer] 3x2in Nonreinforced Permanent Implantable Thk.04in - [id number] Implanted:Qty: 1 on 02/15/2023 by Ino Laird MD at [facility] Left: Ear Implantech [id number] 01/20/2027 / / [id number] [employer] Prosth Ossicular 3.0mm 0.75-5.75mm Ti Cntr [place] Concise Prtl 655-075 - [id number] Implanted:Qty: 1 on 07/21/2023 by Ino Laird MD at [facility] Left: Ear [employer] [id number] 07/16/2027 [id number] / / [id number] Insurance [facility] MEDICARE ADVANTAGE [facility] MEDICARE ADVANTAGE Care Teams Banana Grader Relationship Specialty Start Date End Date Danielle Lindsey NP [address] [place] [address] PCP - General Family Medicine 05/04/24
--- OUTSIDE RECORDS SUMMARY | 2024-08-04 11:51 | XMS_ITS | Clinical Summary ---
Author Organization [facility] Address [address] [place] [address] Care Team Providers Care Instrumentation Tech Name Role Phone Jr Penn MD Primary Care Provider [phone] Source Comments [facility],non-owned Affiliates and Associated Physician Practices is amultiple site organization consisting of ambulatory clinics and hospital sitesin [place], [place], [place] and [place]. This disclosure is being madepursuant to the Care Everywhere program and may not contain all information available regarding this patient. Last updated 18.[facility] 8aweek Allergies Active Allergy Reactions Criticality Noted Date Comments Amoxicillin Anaphylaxis,GI Discomfort High 0 Cat Hair Extract Shortness of Breath High 05/02/2020 Penicillins Anaphylaxis High 10/16/2020 Medications * Be aware that medications may not be up to date on this document. Alwaysverify current medications with the patient. Medication Sig Dispensed Refills Start Date End Date Status sildenafil (REVATIO) 20 MG tablet TAKE 1 TABLET NEEDED FOR SEXUAL ACTIVITY 04/27/2020 Active testosterone (ANDROGEL;TESTIM) 50 MG/5GM (1%) gel Use 1 g as instructed once daily 09/02/2020 Active LISINOPRIL PO Take 1 tablet by mouth once daily Active ibuprofen (MOTRIN) 600 MG tablet Take 1 tablet by mouth as needed Active Active Problems No known active problems Immunizations Name Administration Dates Next Due Covid Pfizer primary monoval ent 12+ yr 0.3mL Purple cap 08/09/2020,07/29/2020 Family History Relation Name Status Comments Brother Alive Father Maternal Grandfather Maternal Grandmother Mother Alive Paternal Grandfather Paternal Grandmother Sister Alive Social History Tobacco Use Types Packs/Day Years Used Date Smoking Tobacco: Never Smokeless Tobacco: Never Alcohol Use Standard Drinks/Week Comments Yes 0 (1 standard drink = 0.6 oz pur e alcohol) 10 per week Sex and Gender Information Value Date Recorded Sex Assigned at Not on file Gender Identity Not on file Sexual Orientation Not on file Last Filed Vital Signs Vital Sign Reading Time Taken Comments Blood Pressure 141/89 11/06/2020 4:20 PM CDT Pulse 74 11/06/2020 4:20 PM CDT Temperature 36.6 C (97.9 F) 11/06/2020 3:51 PM CDT Respiratory Rate 10 11/06/2020 4:20 PM CDT Oxygen Saturation 96% 11/06/2020 4:20 PM CDT Inhaled Oxygen Concentration - - Weight 114.5 kg (252 lb 6.4 oz) 021 11:37 AM CDT Height 177.8 cm (5' 10 ) 11/06/2020 11: 37 AM CDT Body Mass Index 36.22 11/06/2020 11:37 AM CDT Plan of Treatment Health Maintenance Due Date Last Done Comments COLOGUARD (AGES 45-75) - COL ON CA SCREENING 1955 COLON MONITORING 1955 COLONOSCOPY - COLON CA SCREENING 1955 CT COLONOGRAPHY - COLON CA SCREENING 1955 Colorectal Cancer Screening 1955 FIT - COLON CA SCREENING 1955 FLEX SIG - COLON CA SCREENING 1955 LIPID TESTING 1955 HEPATITIS C SCREENING 07/19/1973 DTAP/TDAP/TD VACCINES (1 - Tdap) 07/23/1974 PNEUMOCOCCAL VACCINE 50+ (1 of 1 - PCV) 07/23/2005 ZOSTER VACCINE (1 of 2) 07/23/2005 SCREENING FOR DIABETES 10/17/2023 10/16/2020 COVID-19 VACCINE (3 - 2023-2 5 season) 2024 08/09/2020, 07/29/2020 INFLUENZA VACCINE (#1) 2024 02/05/2021 DEPRESSION SCREENING 05/17/2024 MEDICARE AWV CALENDAR YEAR 2024 Respiratory Syncytial Virus (RSV) Vaccine Pt: or over 60 yrs (1 - 1-dose 75+ series) 07/23/2030 HEPATITIS B VACCINE Aged Out No longe r eligible based on patient's age to complete this topic HIB VACCINE Aged Out No longer eligi ble based on patient's age to complete this topic HPV VACCINE Aged Out No longer eligi ble based on patient's age to complete this topic MENINGOCOCCAL (Group B) VACCINE SHARED DECISION-MAKING Aged Out No longer eligible based on patient's age to complete this topic MENINGOCOCCAL GROUPS A/C/Y/W VACCINE Aged Out No longer eligible b ased on patient's age to complete this topic Procedures Procedure Name Priority Date/Time Associated Diagnosis Comments BASIC METABOLIC PANEL (CALCIUM TOTAL) Routine 10/16/2020 10:09 AM CDT Pre-op evaluation from Last 3 Months or Most Recently Relevant to Health Maintenance Results * (ABNORMAL) BASIC METABOLIC PANEL (CALCIUM TOTAL) (10/16/2020 10:09 AM CDT) BUN 15 7 - 26 mg/dL 10/16/2020 10:49 AM [facility] Creatinine 0.93 0.71 - 1.16 mg/dL 10/16/2020 10:49 AM [facility] Sodium 139 136 - 145 mmol/L 10/16/2020 10:49 AM [facility] Potassium 4.6(H) 3.5 - 4.5 mmol/L 10/16/2020 10:49 AM [facility] Chloride 102 98 - 107 mmol/L 10/16/2020 10:49 AM [facility] CO2 30(H) 22 - 29 mmol/L 10/16/2020 10:49 AM [facility] Glucose 112 70 - 115 mg/dL 10/16/2020 10:49 AM [facility] Calcium 9.4 8.4 - 10.2 mg/dL 10/16/2020 10:49 AM [facility] Anion Gap 12 8 - 18 10/16/2020 10:49 AM [facility] BUN/Creatinine Ratio 16 7 - 23 10/16/2020 10:49 AM [facility] Osmolality Calculated 290 270 - 300 mOsm/kg 10/16/2020 10:49 AM [facility] eGFR by CKD-EPI 86(L) >=90 mL/min/1.7 3 m2 10/16/2020 10:49 AM CDT [facility] Blood BLOOD SPECIMEN / Unknown Lab Venipuncture / Unknown 10/16/2020 10:09 AM CDT 10/16/2020 10:17 AM CDT Xin Vallejo STUDY MANAGER-ENVELOPE ADDRESSER LAB - BRIONNA LUIS E ORDERABLES Performing Organization Address City/[facility] Co de Phone Number [facility] [address] [place] [address], [facility] [phone] from Last 3 Months or Most Recently Relevant to Health Maintenance Advance Directives * Full Code (Latest Code Status on File) Date Activated Date Inactivated Comments 11/05/2020 3:34 PM 11/06/2020 5:33 PM Care Teams Instrumentation Tech Relationship Specialty Start Date End Date Jr Penn MD PCP - General Family Medicine 02/06/19
--- OUTSIDE RECORDS SUMMARY | 2024-08-04 11:51 | XMS_ITS | Clinical Summary ---
Author Organization [facility] Address [address] [place] [address] Care Team Providers Care Precinct I Police Sergeant Name Role Phone Unavailable Primary Care Provider Unavailabl e Social History Tobacco Use Types Packs/Day Years Used Date Smoking Tobacco: Never Assessed Sex and Gender Information Value Date Recorded Sex Assigned at Not on file Legal Sex Male 1:13 PM EMPLOYMENT LAW ATTORNEY Gender Identity Not on file Sexual Orientation Not on file Plan of Treatment Health Maintenance Due Date Last Done Comments Hepatitis C Virus (HCV) Screening 1955 Colonoscopy 07/23/2000 Colorectal Cancer Screening 07/23/2000 Cologuard 07/23/2005 Immunochemical Fecal Occult Blood 07/23/2005 Pneumococcal Immunization (5 0+ years) (1 of 1 - PCV) 07/23/2005 Zoster Immunization (1 of 2) 07/23/2005 PSA Discussion 07/23/2010 Influenza Immunization (#1) 2024 03/06/2020 SARS-COV-2 Immunization ( - season) 2024 Respiratory Syncytial Virus (RSV) Immunization (Adult) (1 - 1-dose 75+ series) 07/23/2030 DTaP/Tdap/Td Immunization Discontinued 07/29/2013 TdaP Immunization Completed 07/29/2013 Hepatitis B Immunization Aged Out No longer eligible based on patient's age to complete this topic Meningococcal Immunization (ACWY) Aged Out No longer eligible based on patient's age to complete this topic Rotavirus Immunization Aged Out No lo nger eligible based on patient's age to complete this topic
--- OUTSIDE RECORDS SUMMARY | 2024-08-04 11:51 | XMS_ITS | Encounter Summary ---
Author Organization [facility] Address [facility] [place] [address] Care Team Providers Care Furniture Assembler And Installer Name Role Phone Danielle Lindsey MANDARIN TUTOR Primary Care Provider + Encounter Details Date Type Department Care Team (Latest Contact Info) Description 07/17/2024 Scan [facility] INFO SRVCS Scanned, Doc Med Group Social History Tobacco Use Types Packs/Day Years Used Date Smoking Tobacco: Never Passive Smoke Exposure: Past Smokeless Tobacco: Never Alcohol Use Standard Drinks/Week Comments Yes 25 (1 standard drink = 0.6 oz pu re alcohol) couple x/week PHQ-2 Answer Date Recorded Patient Health Questionnaire-2 Score 0 06/30/2024 Sex and Gender Information Value Date Recorded Sex Assigned at Male 06/30/2024 11:27 AM ELECTRICAL ENGINEERING INTERN Legal Sex Male 7:32 PM CDT Gender Identity Not on file Sexual Orientation Not on file documented as of this encounter Plan of Treatment Upcoming Encounters Date Type Department Care Team (Late Contact Info) Description 09/15/2024 11:00 AM CDT Office Visit [facility] [address] [place] [address] [phone] Danielle Lindsey NP [address] [facility] [address] [place] [address] documented as of this encounter Visit Diagnoses Not on filedocumented in this encounter Additional Health Concerns Assessment Noted Time PHQ-9 Depression Total Score: 0 02/13/20 21 8:10 AM CDT documented as of this encounter Care Teams Furniture Assembler And Installer Relationship Specialty Start Date End Date Danielle Lindsey NP [address] [place] [address] PCP - General Nurse Practitioner Family 11/14/21 documented as of this encounter
[2024-08-04 14:08] LABS: Appearance Synovial Fluid Cloudy (Clear); Color Synovial Fluid Yellow (Colorless); Source Synovial Fluid Lt Knee Syn Fluid
[2024-08-04 14:09] LABS: Nucleated Cell Synovial Fluid 24210 /uL (0-200); RBC Synovial Fluid 3000 /uL (0-0)
[2024-08-04 14:12] LABS: Lymphocytes Synovial Fluid 15 %; Macrophages Synovial Fluid 7 %; Monocytes Synovial Fluid 2 %; Neutrophils Synovial Fluid 75 % (0-25)
[2024-08-04 14:18] LABS: Crystals Synovial Fluid None Seen (None Seen)
== END 2024-08-04 10:42 | disposition home or self-care (01) ==
PROVIDERS: Visit Provider Orthopaedic Surgery
DX: M17.12 Unilateral primary osteoarthritis, left knee (principal); M25.462 Effusion, left knee; M25.652 Stiffness of left hip, not elsewhere classified
CPT/HCPCS: 87070; 87075; 87205; 89051; 89060

== ENCOUNTER 2024-09-21 07:35 | Outpatient (CLI) | payer MEDICARE, SELFPAY ==
--- NOTE | ~2024-09-21 | NM_ITS ---
EXAMINATION: NM chriss stress w perfusion DATE: 09/21/2024 11:35 INDICATION: Preoperative cardiovascular exam TECHNIQUE: Rest images were obtained following intravenous administration of 9.9 mCi Tc99m tetrofosmi n (Myoview). The patient was infused intravenously with Lexiscan (Regadenoson). Then, 32 mCi Tc99m te trofosmin (Myoview) was administered intravenously, and stress images were obtained. Data was reconst ructed into short axis and horizontal and vertical long axis SPECT images. Gated SPECT images were al so obtained. COMPARISON: None. FINDINGS: There is no definite reversible or fixed perfusion abnormality to suggest ischemia or infar ction. There is normal left ventricular chamber size, wall motion and ejection fraction. Left ventr icular ejection fraction measures 56%. IMPRESSION: 1. Normal myocardial perfusion at rest and during stress. 2. Left ventricular ejection fraction measuring 56%. Reviewed, dictated and finalized at location A.
--- OUTSIDE RECORDS SUMMARY | 2024-09-21 07:39 | XMS_ITS | Clinical Summary ---
Author Organization [facility] Address [address] [place] [address] Care Team Providers Care Mat Machine Operator Name Role Phone Unavailable Primary Care Provider Unavailabl e Social History Tobacco Use Types Packs/Day Years Used Date Smoking Tobacco: Never Assessed Sex and Gender Information Value Date Recorded Sex Assigned at Not on file Legal Sex Male 1:13 PM CLAIMS ADJUSTER CROP Gender Identity Not on file Sexual Orientation [...]
--- OUTSIDE RECORDS SUMMARY | 2024-09-21 07:39 | XMS_ITS | Encounter Summary ---
Author Organization [facility] Address [facility] [place] [address] Care Team Providers Care Driller Brake Lining Name Role Phone Jr Penn MD Primary Care Provider [phone] Jr Penn MD Primary Care Provider [phone] Jr Penn MD Primary Care Provider [phone] Danielle Lindsey NP Primary Care Provider + Km Varner MD Unavailable Unavailable Encounter Details Date Type Department Care Team (Late st Contact Info) Description 08/16/2013 Abstract [facility] Clinics Conversion Md, Generic ConversionMD Social History Tobacco Use Types Packs/Day Years Used Date Smoking Tobacco: Never Assessed Sex and Gender Information Value Date Recorded Sex Assigned at Male 06/30/2024 11:27 AM BRAKES INSPECTOR Legal Sex Male 7:32 PM CDT Gender Identity Not on file Sexual Orientation Not on file documented as of this encounter Plan of Treatment Upcoming Encounters Date Type Department Care Team (Late st Contact Info) Description 01/11/2025 11:00 AM CDT Office Visit [facility] [address] [place] [address] Danielle Lindsey NP [address] [facility] [address] [place] [address] documented as of this encounter Visit Diagnoses Not on filedocumented in this encounter Care Teams Driller Brake Lining Relationship Specialty Start Date End Date Jr Penn MD PCP - General 04/19/14 11/13/21 Jr Penn MD PCP - General 01/04/14 04/18/14 Jr Penn MD PCP - General 07/15/13 01/03/14 Danielle Lindsey NP [address] [facility] [address] [place] [address] PCP - General Nurse Practitioner [facility] 11/14/21 Km Varner MD [address] [facility] [address] [place] [address] Consulting Physician UROLOGY 03/18/22 03/15/23 documented as of this encounter
--- OUTSIDE RECORDS SUMMARY | 2024-09-21 07:39 | XMS_ITS | Encounter Summary ---
Author Organization [facility] Address [facility] [place] [address] Care Team Providers Care Salesperson Household Appliances Name Role Phone Danielle Lindsey MEDIA TRAFFIC MANAGER Primary Care Provider + Encounter Details Date Type Department Care Team (Latest Contact Info) Description 09/14/2024 Scan [facility] INFO SRVCS Scanned, Doc [...] Sex Assigned at Male 06/30/2024 11:27 AM EMPLOYMENT PROGRAM REPRESENTATIVE Legal Sex Male 7:32 PM CDT Gender Identity Not on file Sexual Orientation Not on file documented as of this encounter Plan of Treatment Upcoming Encounters Date Type Department Care Team (Late Contact Info) Description 01/11/2025 11:00 AM CDT Office Visit [facility] [address] [place] [address] [phone] Danielle Lindsey NP [address] [facility] [address] [place] [address] documented as of this encounter Visit Diagnoses Not on filedocumented in this encounter Additional Health Concerns Assessment Noted Time PHQ-9 Depression Total Score: 0 02/13/20 21 8:10 AM CDT documented as of this encounter Care Teams Salesperson Household Appliances Relationship Specialty Start Date End Date Danielle Lindsey NP [address] [place] [address] PCP - General Nurse Practitioner Family 11/14/21 documented as of this encounter
--- OUTSIDE RECORDS SUMMARY | 2024-09-21 07:39 | XMS_ITS | Clinical Summary ---
Author Organization [facility] Address [address] [place] [address] Care Team Providers Care Director Of Software Development Name Role Phone Jr Penn MD Primary Care Provider [phone] Source Comments [facility],non-owned Affiliates and Associated Physician Practices is amultiple site organization consisting of ambulatory clinics and hospital sitesin [place], [place], [place] and [place]. This disclosure is being madepursuant to the Care Everywhere program and may not contain all information available regarding this patient. Last updated 18.[facility] N(i)² Allergies Active Allergy Reactions Criticality Noted Date Comments Amoxicillin Anaphylaxis,GI Discomfort High 0 Cat Hair Extract Shortness of Breath High 05/02/2020 Penicillins Anaphylaxis High 10/16/2020 Medications * Be aware that medications may not be up to date on this document. Alwaysverify current medications with the patient. sildenafil (REVATIO) 20 MG tablet TAKE 1 TABLET NEEDED FOR SEXUAL ACTIVITY 0 Active testosterone (ANDROGEL;TESTI M) 50 MG/5GM (1%) gel Use 1 g as instructed once daily 1 Active LISINOPRIL PO Take 1 tablet by mouth once daily Active ibuprofen (MOTRIN) 600 MG tablet Take 1 tablet by mouth as needed Active Active Problems No known active problems Immunizations Immunization Administration Dates Next Due Covid CME primary monoval ent 12+ yr 0.3mL Purple [...] at Not on file Legal Sex Male 12:30 PM CDT Gender Identity Not on file Sexual Orientation Not on file Last Filed Vital Signs Vital Sign Reading Time Taken Comments Blood Pressure 141/89 11/06/2020 4:20 PM CDT Pulse 74 11/06/2020 4:20 PM CDT Temperature 36.6 C (97.9 F) 11/06/2020 3:51 PM CDT Respiratory Rate 10 11/06/2020 4:2 0 PM CDT Oxygen Saturation 96% 11/06/2020 4:20 PM CDT Inhaled Oxygen Concentration - - Weight 114.5 kg (252 lb 6.4 oz) 021 11:37 AM CDT Height 177.8 cm (5' 10 ) 11/06/2020 11: 37 AM CDT Body Mass Index 36.22 11/06/2020 11:37 AM CDT Plan of Treatment Health Maintenance Due Date Last Done Comments COLOGUARD (AGES 45-75) - COLON CA SCREENING 1955 COLON MONITORING 1955 COLONOSCOPY - COLON CA SCREENING 1955 CT COLONOGRAPHY - COLON CA SCREENING 1955 Colorectal Cancer Screening 1955 FIT - COLON CA SCREENING 1955 FLEX SIG - COLON CA SCREENING 1955 HEPATITIS C SCREENING 07/19/1973 DTAP/TDAP/TD VACCINES (1 - Tdap) 07/23/1974 PNEUMOCOCCAL VACCINE 50+ (1 of 1 - PCV) 07/23/2005 ZOSTER VACCINE (1 of 2) 07/23/2005 SCREENING FOR DIABETES 10/17/2023 10/16/2020 COVID-19 VACCINE (2023- season) 2024 01/26/2024, 03/13/2022, 10/23/2021, Additional history exists DEPRESSION SCREENING 05/17/2024 MEDICARE AWV CALENDAR YEAR 2024 LIPID TESTING 09/15/2028 09/16/2023 Respiratory Syncytial Virus (RSV) Vaccine Pt: or over 60 yrs (1 - 1-dose 75+ series) 07/23/2030 INFLUENZA VACCINE Completed 01/26/2024, , 02/05/2021, Additional history exists HEPATITIS B VACCINE Aged Out No longe [...] A/C/Y/W VACCINE Aged Out No longer eligible based on [...] 16 7 - 23 10/16/2020 10:49 AM CDT [facility] Osmolality Calculated 290 270 - 300 mOsm/kg 10/16/2020 10:49 AM [facility] eGFR by CKD-EPI 86(L) >=90 mL/min/1.7 3 m2 10/16/2020 10:49 AM [facility] Blood BLOOD SPECIMEN / Unknown Lab Venipuncture / Unknown 10/16/2020 10:09 AM CDT 10/16/2020 10:17 AM CDT Xin Vallejo RUBBER WASHER-MILK HOUSE WORKER LAB - CHEMISTRY O RDERABLES Final Result [facility] [address] [place] [address], [facility] [phone] from Last 3 Months or Most Recently Relevant to Health Maintenance Insurance [id number] [place] [id number] MEDICARE ADV Advance Directives * Full Code (Latest Code Status on File) Date Activated Date Inactivated Comments 11/05/2020 3:34 PM 11/06/2020 5:33 PM Care Teams Director Of Software Development Relationship Specialty Start Date End Date Jr Penn MD PCP - General Family Medicine 02/06/19
--- OUTSIDE RECORDS SUMMARY | 2024-09-21 07:39 | XMS_ITS | Referral Summary ---
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) 08/29/2024 9:40 AM CDT Procedure visit [facility] [address] [place] [phone] 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) - [facility] [address] [facility] [address] [place] [address] Codi Smith MD Obstructive sleep [...] 2 tablets (1,000 mg total) by mouth propulsion machinery service engineer before breakfast 4 Active clobetasoL (TEMOVATE) 0.05 [...] (10 mg) by mouth daily 4 Active HYDROcodone-acet aminophen (NORCO) 5-325 mg per tablet Take 1-2 tablets by mouth every 8 (eight) hours as needed 5 Active methylPREDNISolo ne (MEDROL DOSEPACK) 4 mg Dosepack TAKE 6 TABLETS ON DAY 1 DIRECTED ON PACKAGE AND DECREASE BY 1 TAB EACH DAY FOR A TOTAL OF 6 DAYS 5 Active Trulicity 1.5 mg/0.5 mL pen injector 5 Active Active Problems Problem Noted Date Diagnosed Date 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 07/12/2024 PVD (peripheral vascular disease) 07/12/2024 Conductive hearing loss of l eft ear with unrestricted hearing of right ear 07/21/2023 Left chronic otitis media 07/21/2023 Lumbago 02/18/2015 Essential hypertension 02/18/2015 Polymyalgia rheumatica 02/18/2015 Edema of lower extremity 02/18/2015 Immunizations Immunization Administration Dates Next Due Influenza, Quadrivalent, Hig h Dose, Preservative Free, Intrr 02/25/2022 Influenza, Quadrivalent, Spl it, Preservative Free, Intramuscular 03/06/2020 Influenza, Unspecified 01/26/2024,02/05/2021 Mobee SARS-CoV-2 Monovalent Vaccination (12+ Yrs) PURPLE 01/26/2024,07/29/2020 [...] on file Legal Sex Male 5:53 AM ASSOCIATE PROFESSOR OF CHEMISTRY Gender Identity Not on file Sexual Orientation Not on file Last Filed Vital Signs Vital Sign Reading Time Taken Comments Blood Pressure 134/70 07/21/2023 1:20 PM ASSOCIATE PROFESSOR OF CHEMISTRY Pulse 87 07/21/2023 1:20 PM ASSOCIATE PROFESSOR OF CHEMISTRY Temperature 36.1 C (97 F) 07/21/2023 12:50 PM ASSOCIATE PROFESSOR OF CHEMISTRY Respiratory Rate 24 07/21/2023 1:20 PM ASSOCIATE PROFESSOR OF CHEMISTRY Oxygen Saturation 94% 07/21/2023 1:20 PM ASSOCIATE PROFESSOR OF CHEMISTRY Inhaled Oxygen Concentration - - Weight 118.8 kg (261 lb 12.8 oz) 2024 11:06 AM ASSOCIATE PROFESSOR OF CHEMISTRY Height 177.8 cm (5' 10 ) 07/17/2024 11: 06 AM ASSOCIATE PROFESSOR OF CHEMISTRY Body Mass Index 37.56 07/17/2024 11:06 AM ASSOCIATE PROFESSOR OF CHEMISTRY Plan of Treatment Upcoming Encounters Date Type Department Care Team (Latest Contact Info) Description 12/15/2024 1:30 PM CDT Hospital Encounter [facility] Operating Room [address] [facility] [place] [phone] Ino Laird MD [facility] [address] DEPT OTOLARYNGOLOGY, [address] [id number] 12/15/2024 1:30 PM CDT - 12/15/2024 3:00 PM CDT Surgery [facility] Operating Room [address] [facility] [place] [phone] Ino Laird MD [address] DEPT OTOLARYNGOLOGY, [address] [id number] IMPLANTATION OSSEOINTEGRATED HEARING DEVICE SUBCUTANEOUS. Scheduled Procedures Name Priority Associated Diagnoses Date/Ti me IMPLANTATION OSSEOINTEGRATED HEARING DEVICE SUBCUTANEOUS. Conductive hearing loss of left ear with unrestricted hearing of right ear 12/15/2024 1:30 PM CDT Medical Devices Implanted Type Area Inspector Purchased Parts Device Identifier Shelf Expiration Date Model / Serial / Lot Implantech Allied[employer] 3x2in Nonreinforced Permanent Implantable Thk.04in -700-40 - [id number] Implanted:Qty: 1 on 02/15/2023 by Ino Laird MD at [facility] Left: Ear Implantech [id number] 01/20/2027 23-700-40 / / [id number] [employer] Prosth Ossicular 3.0mm 0.75-5.75mm Ti Cntr [place] Concise Prtl 655-075 - [id number] Implanted:Qty: 1 on 07/21/2023 by Ino Laird MD at [facility] Left: Ear [employer] [id number] 07/16/2027 655-075 / / [id number] Procedures Procedure Name Priority Date/Time Associated Diagnosis Comments AUDBASE RESULTS 08/29/2024 9:44 AM CDT from Last 3 Months Results * AudBase Results (08/29/2024 9:44 AM CDT) Provider Scanning AUDIOLOGY SERVICES ORDERABLES Final Result from Last 3 Months Insurance [facility] MEDICARE ADVANTAGE UHC MEDICARE ADVANTAGE Care Teams Airline Flight Attendant Relationship Specialty Start Date End Date Danielle Lindsey NP [address] [place] [address] PCP - General Family Medicine 05/04/24
--- OUTSIDE RECORDS SUMMARY | 2024-09-21 07:39 | XMS_ITS | CONTINUITY OF CARE DOCUMENT ---
Author Name bam kuhn Address Unknown Organization [facility] Address [address] [place] [address] Phone [phone] Care Team Providers Care Press Pipe Inspector Name Role Phone Luis Felipe ANAYA, Ana Unavailable PJ ANAYA, GREGORY Hoyt Unavailable [phone] SHANIQUE ANAYA, SANDRA BYNUM Unavailable [phone] PROBLEMS Condition Status Date Provider Notes Family History of Hypertension: active Keila Renteria FOLDER GLUER OPERATOR HTN active Yajaira Renteria FOLDER GLUER OPERATOR Preoperative cardiovascular evaluation active Yajaira Renteria FOLDER GLUER OPERATOR ENCOUNTERS Date Type Provider Location Encounter Diag nosis - In-person encounter Office Visit Deep Russell MD [facility] Family History of Hypertension:HTNPreope rative cardiovascular evaluation VITAL SIGNS Date Observation Value Provider Body Mass Index (Ratio) 37.73 kg/m2 Katya Russell MD blood pressure, cuff size large Ke rri Carlos blood pressure, diastolic 86 mm[Hg] Ke rri Carlos blood pressure, systolic 136 mm[Hg] Modesta Gonzalez oxygen saturation, oximetry 97 % Eugenia Gonzalez respiratory rate E&M 18 /min Eguenia arenas pulse rate 92 /min Eugenia Gross [...] NP drug use no Yajaira Betancourta l FOLDER GLUER OPERATOR smoking status Never smoker Eugenia arredondo FAMILY HISTORY Family Member Condition Mother Negative FH of Coron caridad Artery Disease Father Family History of Hy pertension: INSURANCE PROVIDERS Payer name Policy type / Coverage type [place] red democrat ID UHC MEDICARE COMPLETE HMO Other [id number] ADVANCE DIRECTIVES Name Date DISCUSSED - [...]
--- OUTSIDE RECORDS SUMMARY | 2024-09-21 07:39 | XMS_ITS | Clinical Summary ---
Author Organization [facility] Address [address] [place] [address] Care Team Providers Care Director Rehabilitation Program Name Role Phone Danielle Lindsey Genaro DIAMOND BROKER Primary Care Provider Allergies Active Allergy Reactions [...] 2 tablets (1,000 mg total) by mouth rn clinical trials before breakfast 4 Active clobetasoL (TEMOVATE) 0.05 [...] Date Type Department Care Team Description 08/29/2024 4:30 PM CDT Procedure visit [facility] [facility], [address] [place] [address] Viviana Cabrera, CCC-A Mixed conductive and sensorineural hearing loss of left ear with restricted hearing of right ear (Primary Dx) 08/29/2024 10:00 AM CDT Office Visit [facility] [address], [address] [place] [address] Ino Laird MD Conductive hearing loss of left ear with unrestricted hearing of right ear (Primary Dx); Chronic atticoantral suppurative otitis media of left ear 08/29/2024 9:40 AM CDT Procedure visit [facility] [address] [facility] [address], [address] [place] [address] Mixed conductive and sensorineural hearing loss of left ear with restricted hearing of right ear (Primary Dx) 08/29/[address] [facility] [address], [address] [place] [address] Neeta Sierra 07/17/2024 11:20 AM DIRECT MAIL CLERK Office Visit [facility] [address] [place] [address] Medical Office Building [address] [place] [address] Codi Smith MD Obstructive sleep apnea syndrome (Primary Dx); Intolerance of continuous positive airway pressure (CPAP) ventilation from Last 3 Months Immunizations Immunization Administration Dates Next Due Influenza, Quadrivalent, Hig h Dose, Preservative Free, Intrr 02/25/2022 Influenza, Quadrivalent, Spl it, Preservative Free, Intramuscular 03/06/2020 Influenza, Unspecified 01/26/2024,02/05/2021 TabbedOut SARS-CoV-2 Monovalent Vaccination (12+ Yrs) PURPLE 01/26/2024,07/29/2020 [...] on file Legal Sex Male 5:53 AM DIRECT MAIL CLERK Gender Identity Not on file Sexual Orientation Not on file Obstetrics History Last Filed Vital Signs Vital Sign Reading Time Taken Comments Blood Pressure 134/70 07/21/2023 1:20 PM DIRECT MAIL CLERK Pulse 87 07/21/2023 1:20 PM DIRECT MAIL CLERK Temperature 36.1 C (97 F) 07/21/2023 12:50 PM DIRECT MAIL CLERK Respiratory Rate 24 07/21/2023 1:20 PM DIRECT MAIL CLERK Oxygen Saturation 94% 07/21/2023 1:20 PM DIRECT MAIL CLERK Inhaled Oxygen Concentration - - Weight 118.8 kg (261 lb 12.8 oz) 2024 11:06 AM DIRECT MAIL CLERK Height 177.8 cm (5' 10 ) 07/17/2024 11: 06 AM DIRECT MAIL CLERK Body Mass Index 37.56 07/17/2024 11:06 AM DIRECT MAIL CLERK Plan of Treatment Upcoming Encounters Date Type Department Care Team (Latest Contact Info) Description 12/15/2024 1:30 PM CDT Hospital Encounter [facility] Operating Room [address] [place] [address] Ino Laird MD [facility], [address] [address] 12/15/2024 1:30 PM CDT - 12/15/2024 3:00 PM CDT Surgery [facility] Operating Room [address] [facility] [place] [phone] Ino Laird MD [address] [facility], [facility] [address] [place] [address] IMPLANTATION OSSEOINTEGRATED HEARING DEVICE SUBCUTANEOUS. Scheduled Procedures Name Priority Associated Diagnoses Date/Ti me IMPLANTATION OSSEOINTEGRATED HEARING DEVICE SUBCUTANEOUS. Conductive hearing loss of left ear with unrestricted hearing of right ear 12/15/2024 1:30 PM CDT Health Maintenance Due Date Last Done Comments [...] history exists Medical Devices Implanted Type Area Historical Archeologist Device Identifier Shelf Expiration Date Model / Serial / Lot Implantech Alliedsil 3x2in Nonreinforced Permanent Implantable Thk.04in - [id number] Implanted:Qty: 1 on 02/15/2023 by Ino Laird MD at [facility] Left: Ear Implantech [id number] 01/20/2027 / / [id number] [employer] Prosth Ossicular 3.0mm 0.75-5.75mm Ti Cntr [place] Concise Prtl 655-075 - [id number] Implanted:Qty: 1 on 07/21/2023 by Ino Laird MD at [facility] Left: Ear [employer] [id number] 07/16/2027 [id number] / / [id number] Procedures Procedure Name Priority Date/Time Associated Diagnosis Comments AUDBASE RESULTS 08/29/2024 9:44 AM CDT from Last 3 Months Results * AudBase Results (08/29/2024 9:44 AM CDT) Provider Scanning AUDIOLOGY SERVICES ORDERABLES Final Result from Last 3 Months Insurance [facility]ICARE [facility] Address: [address] [address] [place] [address] MEDICARE [facility] MEDIC[facility] Address: [address] [address] [place] [address] Care Teams Director Rehabilitation Program Relationship Specialty Start Date End Date Danielle Lindsey NP [address] [place] [address] PCP - General Family Medicine 05/04/24
--- OUTSIDE RECORDS SUMMARY | 2024-09-21 07:39 | XMS_ITS | Clinical Summary ---
Author Organization [facility] Address [facility]ly [facility] [place] [address] Care Team Providers Care Grocery Supervisor Name Role Phone Rosalia Daniellericardo Dominguez NP [...] neuropathy, without long-term current use of insulin ([facility]) BID for 1 week then daily (dispense what insurance covers) 1 kit 2023 Active Glucose Blood (IGLUCOSE TEST STRIPS) test stripIndications:Type 2 diabetes mellitus with diabetic neuropathy, without long-term current use of insulin ([facility]) BID for 1 week then daily (dispense what insurance covers) 100 strip 2 2023 Active Lancets Ultra Thin 30G MiscIndications:Type 2 diabetes mellitus with diabetic neuropathy, without long-term current use of insulin ([facility]) BID for 1 week then daily (dispense [...] total) by mouth once a week. Active testosterone (ANDROGEL) 50 MG of testosterone/5 GM (1%) Gel gelIndications:Hypogon adism in male PLACE 1 PACKET (50 MG OF TESTOSTERONE TOTAL) ONTO THE SKIN DAILY. 150 g 2 2024 Active HYDROcodone-acetaminop hen (NORCO) 5-325 MG tabletIndications:Kiln Loader dereck Pain Take 1-2 tablets by mouth every 8 (eight) hours as needed for Pain. Indications: Chronic Pain 40 tablet 2024 Active predniSONE (DELTASONE) 2.5 mg tablet Take 1 tablet (2.5 mg total) by mouth daily. 2024 Active folic acid (FOLVITE) 400 MCG tablet Take 1 tablet (400 mcg total) by mouth daily. Active dulaglutide (TRULICITY) 3 MG/0.5ML injectionIndications:T ype 2 diabetes mellitus with diabetic neuropathy, without long-term current use of insulin ([facility]) Inject 3 mg into the skin once a week. 2 mL 11 2024 Active tiZANidine (ZANAFLEX) 4 MG tabletIndications:Kiln Loader dereck pain of both shoulders Take 1 tablet (4 mg total) by mouth every 8 (eight) hours as needed. 30 tablet 09/15 Discontinued dulaglutide (TRULICITY) 1.5 MG/0.5ML injectionIndications:T ype 2 diabetes mellitus with diabetic neuropathy, without long-term current use of insulin ([facility]) INJECT 1.5 MG INTO THE SKIN ONCE A WEEK. 2 mL 2 09/15 Discontinued( Dose adjustment) Active Problems Problem Noted Date Diagnosed Date PVD (peripheral vascular disease) 07/12/2024 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 07/12/2024 Conductive hearing loss of l eft ear with unrestricted hearing of right ear 07/21/2023 Left chronic otitis media 07/21/2023 Eczema 05/20/2023 H/O tympanomastoidectomy 02/17/2023 Pure hypercholesterolemia 08/19/2022 Type 2 diabetes mellitus ([facility]) 08/11 Morbid (severe) obesity due to excess calories 1 05/18/2021 Osteoarthrosis 08/29/2021 Family history of cardiovascular disease 020 Essential (primary) hypertension 12/28/2016 Edema of lower extremity 02/18/2015 Lumbago 02/18/2015 Polymyalgia rheumatica ([facility]) 01/18/2015 Testicular hypofunction 12/26/2012 Resolved Problems Problem Noted Date Diagnosed Date Resolved Date Acute torn meniscus 08/29/2021 03/18/20 22 Encounter for preprocedural cardiovascular examination 05/02/2020 09/01/2021 Family history of hypertension 05/02/2020 01/26/2024 Encounters Date Type Department Care Team Description 09/15/2024 11:00 AM CDT Office Visit [facility] [address] [place] [phone] Danielle Lindsey NP Pre-Op Exam (Pt here today for pre-op exam.); Follow Up (Pt here for 3 month follow up with A1C and CSA.) 09/15/2024 Travel 09/14/2024 Scan HEALTH INFO SRVCS Scanned, [facility] 08/29/2024 Scan MG HEALTH INFO SRVCS Scanned, [facility] 08/18/2024 Scan MG HEALTH INFO SRVCS Scanned, [facility] 08/04/2024 Scan [facility] HEALTH INFO SRVCS Scanned, [facility] 08/02/2024 11:40 AM CDT Office Visit [address] [address] Danielle Lindesy, NATALY Knee Pain (Pt here for ongoing knee pain.) 08/02/2024 Travel 07/27/[address] [address] Danielle Lindsey, NATALY Medication Request; Joint Pain 2024 Scan [facility]ALTH INFO SRVCS Scanned, [facility] 07/21/2024 Scan [facility] INFO SR[facility]CS Scanned, [facility] 07/19/2024 Scan [facility] INFO SRVCS Scanned, [facility] 07/17/2024 Scan [facility] INFO SRVCS Scanned, [facility] 07/12/2024 9:40 AM FIRE TECHNICIAN Office Visit [address] [address] Danielle Lindsey, NATALY Follow Up (Pt here today for leg edema.) 07/11/2024 12:10 PM FIRE TECHNICIAN Laboratory Only [facility] [address] [address] Kwabena Martin MD 07/11/2024 Travel 06/30/2024 11:40 AM FIRE TECHNICIAN Office Visit [address] [address] Danielle Lindsey, NATALY Shoulder Pain (Rt, NKI, couple months) 06/30/2024 Travel 06/29/2024 10:45 AM FIRE TECHNICIAN - 06/29/2024 11:59 PM FIRE TECHNICIAN Hospital Encounter [address] [address] Zane Salazar MD Discharge Disposition: Home or Self Care (Routine Discharge) 06/29/2024 Orders Only [facility] [address] [place] [address] Zane Salazar MD 06/29/2024 Orders Only [facility] [address] [place] [address] Zane Salazar MD 06/29/2024 Travel from Last 3 Months Immunizations Immunization Administration Dates Next Due Fluzone 6 Months+ [...] Sex Assigned at Male 06/30/2024 11:27 AM FIRE TECHNICIAN Legal Sex Male 7:32 PM CDT Gender Identity Not on file Sexual Orientation Not on file Last Filed Vital Signs Vital Sign Reading Time Taken Comments Blood Pressure 131/85 09/15/2024 11:03 AM CDT Pulse 83 09/15/2024 11:03 AM CDT Temperature 37.1 C (98.8 F) 09/15/2024 11:03 AM CDT Respiratory Rate 20 09/15/2024 11:03 AM CDT Oxygen Saturation 97% 09/15/2024 11:03 AM CDT Inhaled Oxygen Concentration - - Weight 114.8 kg (253 lb) 09/15/2024 11:03 AM CDT Height 177.8 cm (5' 10 ) 09/15/2024 11:03 AM CDT Body Mass Index 36.3 09/15/2024 11:03 AM CDT Plan of Treatment Upcoming Encounters Date Type Department Care Team (Late st Contact Info) Description 01/11/2025 11:00 AM CDT Office Visit [facility] [address] [place] [address] Danielle Lindsey NP [address] [facility] [address] [place], [place] [id number] Health Maintenance Due Date Last Done Comments Kidney Health Evaluation 1955 Hepatitis C 07/23/1973 Annual Medicare Wellness Visit 07/23/2020 COVID-19 Vaccine ( season) 2024 01/26/2024, 02/08/2023, 03/13/2022, Additional history exists Lipid Panel 09/15/2024 09/16/2023, 07/16, 08/04/2022, Additional history exists Hemoglobin A1C 03/18/2025 09/15/2024, 04/16, 01/26/2024, Additional history exists Diabetes: Retinopathy Eye Exam 07/18/2025 07/19/2023 Colorectal Cancer Screening Colonoscopy (10 Years) 04/20/2027 04/20/2017 DTaP, Tdap and Td Vaccines (3 - Td or Tdap) 03/29/2034 03/29/2024, 07/29/2013 Pneumococcal Vaccine: 50+ Years Completed 02/24/2022, 02/05/2021 Zoster Vaccines Completed 08/08/2022, 06/09/2022 RSV Immunization or 60+ Years Completed 03/29/2024 PHQ-2 (Physician [place]) Completed 06/30/2024 Meningococcal B Vaccine Aged Out No l onger eligible based on patient's age to complete this topic Meningococcal Vaccine Aged Out No estella cristina eligible based on patient's age to complete this topic RSV Immunizations Under 20 Months Aged Out No longer eligible based on patient's age to complete this topic Procedures Procedure Name Priority Date/Time Associated Diagnosis Comments COLLECT.CAPILLARY (FNGR,HEEL,EAR) Routine 09/15/2024 10:53 AM CDT Type 2 diabetes mellitus with diabetic neuropathy, without long-term current use of insulin ([facility]) HEMOGLOBIN, GLYCOSYLATED Routine 09/15/2024 Type 2 diabetes mellitus with diabetic neuropathy, without long-term current use of insulin ([facility]) PROSTATIC SPECIFIC ANTIGEN Routine 07/11/2024 10:43 AM FIRE TECHNICIAN COMPREHENSIVE METABOLIC PANEL Routine 06/29/2024 10:55 AM FIRE TECHNICIAN Hypogonadism male HEMATOCRIT Routine 06/29/2024 10:55 AM FIRE TECHNICIAN Hypogonadism male ESTRADIOL Routine 06/29/2024 10:55 AM FIRE TECHNICIAN Hypogonadism male TESTOSTERONE, TOTAL Routine 06/29/2024 10:55 AM FIRE TECHNICIAN Hypogonadism male LIPID PANEL Routine 09/16/2023 9:01 AM CDT Pure hypercholesterolemia DIABETIC RETINOPATHY EXAM (NEGATIVE)(SCAN ORDER) Routine 07/19/2023 COLONOSCOPY GENERIC (SCAN ORDER) Routine 04/20/2017 12:00 AM FIRE TECHNICIAN from Last 3 Months or Most Recently Relevant to Health Maintenance Results * A1C (BACK OFFICE) (09/15/2024) HGB A1C 8.0 % STIVEN HUDSON (2915)ANABEL 09/15/2024 Danielle Lindsey SANFORIZING MACHINE OPERATOR LABORATORY Final Re sult DEVON HUDSON ([id number]), ANABEL [address] [place] [address], [place] [phone] * PROSTATIC SPECIFIC ANTIGEN (07/11/2024 10:43 AM FIRE TECHNICIAN) Pathologist [facility] PSA 1.40 <4.0 ng/ml 07/11/2024 11:57 AM FIRE TECHNICIAN [facility] Comment: Test was performed using the Siemens method. Results obtained with other assay methods or kits cannot be used interchangeably with results obtained by the Siemens method. 07/11/2024 10:4 3 AM FIRE TECHNICIAN Kwabena Martin MD LABORATORY Final Result [facility] [address] [place] [address], [place] [phone] * (ABNORMAL) COMPREHENSIVE METABOLIC PANEL (06/29/2024 10:55 AM FIRE TECHNICIAN) GLUCOSE 263(H) 70 - 99 MG/DL 06/29/2024 12:00 PM FIRE TECHNICIAN [facility] BUN 23(H) 7 - 18 MG/DL 06/29/2024 12:00 PM FIRE TECHNICIAN [facility] CREATININE S/P/B 1.00 0.7 - 1.3 MG/DL 06/29/2024 12:00 PM [facility] SODIUM S/P/B 139 136 - 145 MMOL/L 06/29/2024 12:00 PM [facility] POTASSIUM S/P/B 4.7 3.5 - 5.1 MMOL/L 06/29/2024 12:00 PM [facility] CHLORIDE S/P/B 103 100 - 108 MMOL/L 06/29/2024 12:00 PM [facility] CO2 27.2 21 - 32 MMOL/L 06/29/2024 12:00 PM [facility] CALCIUM S/P/B 9.6 8.5 - 10.1 MG/DL 06/29/2024 12:00 PM [facility] BILIRUBIN TOTAL S/P/B 0.4 0.2 - 1.2 MG/DL 06/29/2024 12:00 PM [facility] Comment: THIS ASSAY IS NOT RECOMMENDED FOR PATIENTS UNDERGOING TREATMENT WITH ELTROMBOPAG DUE TO THE POTENTIAL FOR FALSELY ELEVATED RESULTS. TOTAL PROTEIN S/P/B 6.8 6.4 - 8.2 G/DL 06/29/2024 12:00 PM [facility] ALBUMIN S/P/B 3.6 3.4 - 5.0 G/DL 06/29/2024 12:00 PM [facility] AST 20 15 - 37 U/L 06/29/2024 12:00 PM [facility] ALT 43 16 - 60 U/L 06/29/2024 12:00 PM [facility] ALKALINE PHOSPHATASE S/P/B 53 50 - 136 U/L 06/29/2024 12:00 PM [facility] ANION GAP 8.8 5 - 15 MMOL/L 06/29/2024 12:00 PM [facility] BUN CREATININE RATIO 23.0 6 - 26 06/29/2024 12:00 PM [facility] A/G RATIO 1.1 1.0 - 2.0 RATIO 06/29/2024 12:00 PM [facility] GFR ESTIMATE 82(L) >90 ML/MIN/1.7 3 M2 06/29/2024 12:00 PM [facility] Comment: NOTE: eGFR is not calculated for patients <18 years of age. This is an estimated GFR calculation using the new CKD EPI creatinine equation without race and so does not require a correction factor for race. This estimated GFR should not be used for calculating drug doses. 06/29/2024 10:5 5 AM FIRE TECHNICIAN Zane Salazar MD LABORATORY Final Res ult Performing Organization Address City/[facility]/ZIP Co de Phone Number [facility] [address] [place] [id number], * HEMATOCRIT (06/29/2024 10:55 AM FIRE TECHNICIAN) HCT 49.7 43.0 - 54.0 % 06/29/2024 11:31 AM [facility] 06/29/2024 10:5 5 AM FIRE TECHNICIAN Zane Salazar MD LABORATORY Final Res ult Performing Organization Address [facility]/ZIP Co de Phone Number [facility] [address] [place] [address], * (ABNORMAL) ESTRADIOL (06/29/2024 10:55 AM FIRE TECHNICIAN) ESTRADIOL (E2) 84(H) <=39 pg/mL 07/04/2024 3:44 AM FIRE TECHNICIAN [email or web address] [facility] Comment: Reference range established on post-pubertal patient population. No pre-pubertal reference range established using this assay. For any patients for whom low Estradiol levels are anticipated (e.g. males, pre-pubertal children, and hypogonadal/post-menopausal females), the [employer] [facility] Estradiol, Ultrasensitive, LCMSMS assay is recommended (order code 51949). Please note: Patients being treated with the drug fulvestrant [Faslodex(R)] have demonstrated significant interference in immunoassay methods for estradiol measurement. The cross reactivity could lead to falsely elevated estradiol test results leading to an inappropriate clinical assessment of estrogen status. [employer] order code [id number], Ultrasensitive LC/MS/MS demonstrates negligible cross reactivity with fulvestrant. Test Performed by [facility] [place], [address] [place] [address] Romeo Michaud M.D., Ph.D., Director of Laboratories , CLIA [id number] 06/29/2024 10:5 5 AM FIRE TECHNICIAN Zane Salazar MD LABORATORY Final Res ult [employer] , * TESTOSTERONE, TOTAL (06/29/2024 10:55 AM FIRE TECHNICIAN) TESTOSTERONE TOTAL 633 250 - 1,100 ng/dL 07/03/2024 11:54 AM FIRE TECHNICIAN [employer] Comment: Men with clinically significant hypogonadal symptoms and testosterone values repeatedly in the range of the 200-300 ng/dL or less, may benefit from testosterone treatment after adequate risk and benefits counseling. For additional information, please refer to http://education.TechForward.Everyday.me/faq/ LwpkeDcabeeucxqenHVTQVJRYN070 (This link is being provided for informational/ educational purposes only.) This test was developed and its analytical performance characteristics have been determined by [employer] [place], [place]. It has not been cleared or approved by the U.S. Food and Drug Administration. This assay has been validated pursuant to the CLIA regulations and is used for clinical purposes. Test Performed by [employer] [place], [facility], [address] [place], [place] Romeo Michaud M.D., Ph.D., Director of Laboratories , CLIA [id number] 06/29/2024 10:5 5 AM FIRE TECHNICIAN Zane Salazar MD LABORATORY Final Res ult [facility] [address] [place] [address], [place] [phone] * LIPID PANEL (09/16/2023 9:01 AM CDT) CHOLESTEROL 135 <200 MG/DL 09/16/2023 10:02 AM T [facility] TRIGLYCERIDES 68 <150 MG/DL 09/16/2023 10:02 AM [facility] HDL 43 >40.0 MG/DL 09/16/2023 10:02 AM [facility] LDL (CALCULATED) 78 <100 MG/DL 09/16/19 10:02 AM [facility] NON HDL CHOLESTEROL 92 <130 MG/DL 09/15 10:02 AM [facility] Comment: NOTE: WHEN THE TRIGLYCERIDES ARE >200 mg/dL, NON HDL C IS A SECONDARY TARGET OF THERAPY, WITH A GOAL 30 mg/dL HIGHER THAN THE IDENTIFIED LDL C GOAL. CHOL/HDL RATIO 3.1 0.0 - 4.5 09/16/2023 10:02 AM [facility] VLDL CALCULATION 14 5 - 55 MG/DL 09/16/2023 10:02 AM [facility] LIPID INTERPRETATION 09/16/2023 10:02 AM [facility] Comment: NIH CONCENSUS REPORT RECOMMENDATIONS: ADULT CHILD LOW RISK: CHOLESTEROL <200 <170 TRIGLYCERIDE <150 --- HDL >=60 --- LDL <100 <110 BORDERLINE: CHOLESTEROL 200-239 170-199 TRIGLYCERIDE 150-199 --- HDL 40-59 --- LDL 100-159 110-129 HIGH RISK: CHOLESTEROL >=240 >=200 TRIGLYCERIDE >=200 --- HDL <40 --- LDL >=160 >=130 09/16/2023 9:01 AM CDT us Danielle Lindsey NP LABORATORY Final Re sult [facility] [address] [place] [address], [place] [phone] * DIABETIC RETINOPATHY EXAM (NEGATIVE) (07/19/2023) us [facility] Scanned SCANNING Final Resu lt Performing Organization Address [facility]/ZIP Co de Phone Number [facility] * COLONOSCOPY (04/20/2017 12:00 AM FIRE TECHNICIAN) 04/20/2017 Documents Scanned SCANNING Final Result Performing Organization Address City/[facility]/ZIP Co de Phone Number [facility] from Last 3 Months or Most Recently Relevant to Health Maintenance Insurance [facility] Care Teams Grocery Supervisor Relationship Specialty Start Date End Date Danielle Lindsey NP [address] [facility] [address] [place] [address] PCP - General Nurse Practitioner Family 11/14/21
--- OUTSIDE RECORDS SUMMARY | 2024-09-21 07:39 | XMS_ITS | Encounter Summary ---
Author Organization [facility] Address [facility] [place] [address] Care Team Providers Care Director Industrial Nursing Name Role Phone Jr Penn MD Primary Care Provider [phone] Jr Penn MD Primary Care Provider [phone] Jr Penn MD Primary Care Provider [phone] Danielle Lindsey NP Primary Care Provider + Km Varner MD Unavailable Unavailable Encounter Details Date Type Department Care Team (Late st Contact Info) Description 08/22/2013 Abstract [facility] Conversion Md, Generic ConversionMD Social History Tobacco Use Types Packs/Day Years Used Date Smoking Tobacco: Never Assessed Sex and Gender Information Value Date Recorded Sex Assigned at Male 06/30/2024 11:27 AM ELECTRIC REPAIR SUPERVISOR Legal Sex Male 7:32 PM CDT Gender Identity Not on file Sexual Orientation Not on file documented as of this encounter Plan of Treatment Upcoming Encounters Date Type Department Care Team (Late st Contact Info) Description 01/11/2025 11:00 AM CDT Office Visit [facility] [address] [place] [address] Danielle Lindsey NP [address] [facility] [address] [place] [address] documented as of this encounter Visit Diagnoses Not on filedocumented in this encounter Care Teams Director Industrial Nursing Relationship Specialty Start Date End Date Jr Penn MD PCP - General 04/19/14 11/13/21 Jr Penn MD PCP - General 01/04/14 04/18/14 Jr Penn MD PCP - General 07/15/13 01/03/14 Danielle Lindsey NP [address] [facility] [address] [place] [address] PCP - General Nurse Practitioner [facility] 11/14/21 Km Varner MD [address] [facility] [address] [place] [address] Consulting Physician UROLOGY 03/18/22 03/15/23 documented as of this encounter
--- NOTE | 2024-09-21 08:18 | EST_ITS ---
Patient Info Name: Donal Lopes Age: 69 years : 1955 Gender: Male Ht: 70 in Wt: 250 lbs BSA: 2.41 m2 Exam Date: 09/21/2024 10:06 AM Exam Location: Echo Lab Patient Status: Outpatient Admit Date: 09/21/2024 Staff Ordering Physician: Zackary Odonnell DO Attending Provider: Zackary Odonnlel DO Exercise Technologist: Jhoana Lorenzo RDCS Exercise Physician: Zackary Odonnell DO Exam Type: CA stress chriss w NM Study Info A regadenoson stress test was performed. Summary 1. 1. Negative lexiscan stress test for ischemic ST changes by ECG criteria. 2. 2. Stable hemodynamics throughout the test. 3. 3. Nuclear scan to follow and will be reported separately. Please correlate with it. 4. 4. Patient informed of the above results. Protocol: Lexiscan Stress ECG Details Stage: REST Duration (min): 0 min : 52 sec HR (bpm): 75 SBP (mmHg): 124 DBP (mmHg): 79 Stage: REST Duration (min): 8 min : 53 sec HR (bpm): 80 SBP (mmHg): 124 DBP (mmHg): 79 Stage: STAGE 1 Duration (min): 0 min : 59 sec HR (bpm): 89 SBP (mmHg): 136 DBP (mmHg): 76 Stage: RECOVERY Duration (min): 1 min : 0 sec HR (bpm): 96 SBP (mmHg): 136 DBP (mmHg): 74 Stage: RECOVERY Duration (min): 2 min : 0 sec HR (bpm): 94 SBP (mmHg): 136 DBP (mmHg): 74 Stage: RECOVERY Duration (min): 3 min : 0 sec HR (bpm): 92 SBP (mmHg): 121 DBP (mmHg): 78 Stage: RECOVERY Duration (min): 3 min : 2 sec HR (bpm): 92 SBP (mmHg): 121 DBP (mmHg): 78 Rest HR: 80 bpm Peak HR: 97 bpm Rest Sys BP: 124 mmHg Peak Sys BP: 136 mmHg Max Pred HR: 151 bpm % Max Pred HR: 64 % Target HR: 128 bpm Max RPP: 13,192 bpm*mmHg Termination Reason: Completed protocol Cardiac Symptoms: Shortness of breath Total Time: 1 min : 0 sec Rest Flynn BP: 79 mmHg Peak Flynn BP: 76 mmHg Total Dose: 0.4 mg Resting ECG Sinus rhythm. Stress ECG No ST changes. Arrhythmias None. Report Signatures
== END 2024-09-21 07:36 | disposition home or self-care (01) ==
PROVIDERS: Visit Provider Internal Medicine Cardiovascular Disease
DX: Z01.810 Encounter for preprocedural cardiovascular examination (principal)
CPT/HCPCS: 78452; 93017; A9502; J2785

== ENCOUNTER 2024-10-23 13:30 | Outpatient (CLI) | payer MEDICARE, SELFPAY ==
--- OUTSIDE RECORDS SUMMARY | 2024-10-23 14:49 | XMS_ITS | Clinical Summary ---
Author Organization [facility] Address [address] [place] [address] Care Team Providers Care Wooden Fence Erector Name Role Phone Danielle Lindsey Genaro FILTER PRESS TENDER Primary Care Provider Allergies Active Allergy Reactions Criticality Noted Date Comments Cat Hair Standardized Allergenic Extract Shortness of breath High 05/02/2020 Hydroxychloroquine Rash High 11/09/2023 Metformin Diarrhea Medium 10/27/2023 Penicillins Anaphylaxis High 01/11/2023 Allcillins Medications lisinopriL (PRINIVIL,ZESTRI L) 10 mg tabletIndication [...] 2 tablets (1,000 mg total) by mouth wet suit gluer before breakfast 4 Active clobetasoL (TEMOVATE) 0.05 [...] Description 08/29/2024 4:30 PM CDT Procedure visit [facility] Otolaryngology [facility] [address] [facility] [place] [address] Viviana Cabrera, CCC-A Mixed conductive and sensorineural hearing loss of left ear with restricted hearing of right ear (Primary Dx) 08/29/2024 10:00 AM CDT Office Visit [facility] Otolaryngology [address] [facility], [address] [place] [address] Ino Laird MD Conductive hearing loss of left ear with unrestricted hearing of right ear (Primary Dx); Chronic atticoantral suppurative otitis media of left ear 08/29/2024 9:40 AM CDT Procedure visit [facility] Otolaryngology [address] [facility], [address] [place] [address] Mixed conductive and sensorineural hearing loss of left ear with restricted hearing of right ear (Primary Dx) 08/29/2024 Telephone [facility] Otolaryngology [address] [facility], [address] [place] [address] Neeta Sierra from Last 3 Months Immunizations Immunization Administration Dates Next Due Influenza, Quadrivalent, Hig h Dose, Preservative Free, Intrr 02/25/2022 Influenza, Quadrivalent, Spl it, Preservative Free, Intramuscular 03/06/2020 Influenza, Unspecified 01/26/2024,02/05/2021 Pfizer SARS-CoV-2 Monovalent Vaccination (12+ Yrs) PURPLE 01/26/2024,07/29/2020 [...] on file Legal Sex Male 5:53 AM REFRIGERATION TECH Gender Identity Not on file Sexual Orientation Not on file Obstetrics History Last Filed Vital Signs Vital Sign Reading Time Taken Comments Blood Pressure 134/70 07/21/2023 1:20 PM REFRIGERATION TECH Pulse 87 07/21/2023 1:20 PM REFRIGERATION TECH Temperature 36.1 C (97 F) 07/21/2023 12:50 PM REFRIGERATION TECH Respiratory Rate 24 07/21/2023 1:20 PM REFRIGERATION TECH Oxygen Saturation 94% 07/21/2023 1:20 PM REFRIGERATION TECH Inhaled Oxygen Concentration - - Weight 118.8 kg (261 lb 12.8 oz) 2024 11:06 AM REFRIGERATION TECH Height 177.8 cm (5' 10) 07/17/2024 11: 06 AM REFRIGERATION TECH Body Mass Index 37.56 07/17/2024 11:06 AM REFRIGERATION TECH Plan of Treatment Upcoming Encounters Date Type Department Care Team (Latest Contact Info) Description 12/15/2024 1:30 PM CDT Hospital Encounter [facility] Operating Room [address] [facility] [place] [phone] [facility] [address] DEPT OTOLARYNGOLOGY, [address] [address] 12/15/2024 1:30 PM CDT - 12/15/2024 3:00 PM CDT Surgery [facility] Operating Room [address] [place] [facility] [place] [phone] Ino Laird MD [address] DEPT OTOLARYNGOLOGY, [address] [address] IMPLANTATION OSSEOINTEGRATED HEARING DEVICE SUBCUTANEOUS. Scheduled Procedures [...] history exists Medical Devices Implanted Type Area Fabricator Foam Rubber Device Identifier Shelf Expiration Date Model / Serial / Lot Implantech Alliedsil 3x2in Nonreinforced Permanent Implantable Thk.04in -40 - [id number] Implanted:Qty: 1 on 02/15/2023 by Ino Laird MD at [facility] Left: Ear Implantech [id number] 01/20/2027-40 / / [id number] [employer] Prosth Ossicular 3.0mm 0.75-5.75mm [facility] [place] Concise Prtl 655-075 - [id number] Implanted:Qty: 1 on 07/21/2023 by Ino Laird MD at [facility] Left: Ear [employer] [id number] 07/16/2027 655-075 / / [id number] Procedures Procedure Name Priority Date/Time Associated Diagnosis Comments AUDBASE RESULTS 08/29/2024 9:44 AM CDT from Last 3 Months Results * AudBase Results (08/29/2024 9:44 AM CDT) Provider Scanning AUDIOLOGY SERVICES ORDERABLES Final Result from Last 3 Months Insurance MEDICARE ADVANTAGE [facility] MEDICARE ADVANTAGE Care Teams Wooden Fence Erector Relationship Specialty Start Date End Date Danielle Lindsey NP [address] [place] [address] PCP - General Family Medicine 05/04/24
--- OUTSIDE RECORDS SUMMARY | 2024-10-23 14:49 | XMS_ITS | Referral Summary ---
Author Organization [facility] Address [address] [place] [address] Care Team Providers Care Ophthalmology Assistant Name Role Phone Rosalia Danielle Lee STEAM BRUSH OPERATOR Primary Care Provider Encounters Date Type Department Care Team Description 08/29/2024 Telephone [facility] Otolaryngology [address] [place] [address] Neeta Sierra 08/29/2024 4:30 PM CDT Procedure visit [facility] Otolaryngology [address] [place] [address] Viviana Cabrera CCC-Lucio Mixed conductive and sensorineural hearing loss of left ear with restricted hearing of right ear (Primary Dx) 08/29/2024 9:40 AM CDT Procedure visit [facility] Otolaryngology [address] [place] [address] Mixed conductive and sensorineural hearing loss of left ear with restricted hearing of right ear (Primary Dx) 08/29/2024 10:00 AM CDT Office Visit [facility] Otolaryngology [address] [place] [address] Ino Laird MD Conductive hearing loss of left ear with unrestricted hearing of right ear (Primary Dx); Chronic atticoantral suppurative otitis media of left ear from Last 3 Months Allergies Active Allergy [...] 2 tablets (1,000 mg total) by mouth benefits director before breakfast 4 Active clobetasoL (TEMOVATE) 0.05 [...] Preservative Free, Intramuscular 03/06/2020 Influenza, Unspecified 01/26/2024,02/05/2021 Curasight SARS-CoV-2 Monovalent Vaccination (12+ Yrs) PURPLE 01/26/2024,07/29/2020 [...] on file Legal Sex Male 5:53 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 [facility]OSP[facility] Gender Identity Not on file Sexual Orientation Not on file Last Filed Vital Signs Vital Sign Reading Time Taken Comments Blood Pressure 134/70 07/21/2023 1:20 PM ST[facility]FF PHARMACIST [facility]OSPITAL Pulse 87 07/21/2023 1:20 PM [facility]ARM[facility] Temperature 36.1 C (97 F) 07/21/2023 12:50 PM [facility]FF PHARM[facility]ITAL Respiratory Rate 24 07/21/2023 1:20 PM [facility] PHARM[facility]ITAL Oxygen Saturation 94% 07/21/2023 1:20 PM [facility] Inhaled Oxygen Concentration - - Weight 118.8 kg (261 lb 12.8 oz) 2024 11:06 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 Height 177.8 cm (5' 10) 07/17/2024 11: 06 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OS[facility]ITAL Body Mass Index 37.56 07/17/2024 11:06 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 Plan of Treatment Upcoming Encounters Date Type Department Care Team (Latest Contact Info) Description 12/15/2024 1:30 PM CDT Hospital Encounter [facility] Operating Room [address] [place] [address] Ino Laird MD [address] DEPT OTOLARYNGOLOGY, [place] [id number] 12/15/2024 1:30 PM CDT - 12/15/2024 3:[address] [facility] Operating Room [address] [facility] [place] [address] Ino Laird MD [address] DEPT OTOLARYNGOLOGY, [address] [phone] IMPLANTATION OSSEOINTEGRATED HEARING DEVICE SUBCUTANEOUS. Scheduled Procedures Name Priority Associated Diagnoses Date/Ti me IMPLANTATION OSSEOINTEGRATED HEARING DEVICE SUBCUTANEOUS. Conductive hearing loss of left ear with unrestricted hearing of right ear 12/15/2024 1:30 PM CDT Medical Devices Implanted Type Area Floatlight Powder Mixer Device Identifier Shelf Expiration Date Model / Serial / Lot Implantech Alliedsil 3x2in Nonreinforced Permanent Implantable Thk.04in 23-700-40 - [id number] Implanted:Qty: 1 on 02/15/2023 by Ino Laird MD at [facility] [place] Left: Ear Implantech [id number] 01/20/2027 23-700-40 / / [id number] [employer] Prosth Ossicular 3.0mm 0.75-5.75mm Ti [facility] [place] Concise Prtl 655-075 - [id number] Implanted:Qty: 1 on 07/21/2023 by Ino Laird MD at [facility] Left: Ear [employer] [id number] 07/16/2027 655-075 / / [id number] Procedures Procedure Name Priority Date/Time Associated Diagnosis Comments AUDBASE RESULTS 08/29/2024 9:44 AM CDT from Last 3 Months Results * AudBase Results (08/29/2024 9:44 AM CDT) Provider Scanning AUDIOLOGY SERVICES ORDERABLES Final Result from Last 3 Months Insurance [place] [phone] [employer] MEDICARE ADVANTAGE Care Teams Ophthalmology Assistant Relationship Specialty Start Date End Date Danielle Lindsey NP [address] [facility] [address] [place] [address] PCP - General Family Medicine 05/04/24
--- OUTSIDE RECORDS SUMMARY | 2024-10-23 14:49 | XMS_ITS | Clinical Summary ---
Author Organization [facility] Address [address] [place] [address] Care Team Providers Care Database Marketing Analyst Name Role Phone Jr Penn MD Primary Care Provider Source Comments [facility],non-owned Affiliates and Associated Physician Practices is amultiple site organization consisting of ambulatory clinics and hospital sitesin [place], [place], [place]. This disclosure is being madepursuant to the Care Everywhere program and may not contain all information available regarding this patient. Last updated 18.[facility] ION Signature Allergies Active Allergy Reactions Criticality Noted Date [...] Immunizations Immunization Administration Dates Next Due Covid Oligasis primary monoval ent 12+ yr 0.3mL Purple [...] 11:37 AM CDT Height 177.8 cm (5' 10) 11/06/2020 11: 37 AM CDT Body Mass [...] 07/23/2005 ZOSTER VACCINE (1 of 2) 07/23/2005 COVID-19 VACCINE ( season) 2024 01/26/2024, 03/13/2022, 10/23/2021, Additional history exists DEPRESSION SCREENING 05/17/2024 MEDICARE AWV CALENDAR YEAR 2024 SCREENING FOR DIABETES 09/16/2027 , 06/29/2024, 10/16/2020, Additional history exists LIPID TESTING 09/15/2028 09/16/2023 Respiratory Syncytial Virus [...] 7 - 26 mg/dL 10/16/2020 10:49 AM [facility] Creatinine 0.93 0.71 - 1.16 mg/dL 10/16/2020 10:49 AM [facility] Sodium 139 136 - 145 mmol/L 10/16/2020 10:49 AM [facility] Potassium 4.6(H) 3.5 - 4.5 mmol/L 10/16/2020 10:[address] [facility] Chloride 102 98 - 107 mmol/L 10/16/2020 10:49 AM [facility] CO2 30(H) 22 - 29 mmol/L 10/16/2020 10:49 AM [facility] Glucose 112 70 - 115 mg/dL 10/16/2020 10:49 AM [facility] Calcium 9.4 8.4 - 10.2 mg/dL 10/16/2020 10:49 AM [facility] Anion Gap 12 8 - 18 10/16/2020 10:49 AM [facility] BUN/Creatinine Ratio 16 7 - 23 10/16/2020 10:49 AM [facility] Osmolality Calculated 290 270 - 300 mOsm/kg 10/16/2020 10:49 AM [facility] eGFR by CKD-EPI 86(L) >=90 mL/min/1.7 3 m2 10/16/2020 10:49 AM [facility] Blood BLOOD SPECIMEN / Unknown Lab Venipuncture / Unknown 10/16/2020 10:09 AM CDT 10/16/2020 10:17 AM T Xin Vallejo NERVE SPECIALIST-SKIRT MAKER LAB - CHEMISTRY O RDERABLES Final Result [facility] [address] [place] [address], [facility] [phone] from Last 3 Months or Most Recently Relevant to Health Maintenance Insurance [id number] MANAGED MEDICARE ADV [facility] MANAGED MEDICARE ADV Advance Directives * Full Code (Latest Code Status on File) Date Activated Date Inactivated Comments 11/05/2020 3:34 PM 11/06/2020 5:33 PM Care Teams Database Marketing Analyst Relationship Specialty Start Date End Date Jr Penn MD PCP - General Family Medicine 02/06/19
--- OUTSIDE RECORDS SUMMARY | 2024-10-23 14:49 | XMS_ITS | CONTINUITY OF CARE DOCUMENT ---
Author Name bam kuhn Address Unknown Organization [facility] Address [address] [place] [address] Phone [phone] Care Team Providers Care Front End Java Developer Name Role Phone Luis Felipe ANAYA, Ana Unavailable [phone] PJ ANAYA, GREGORY Hoyt Unavailable [phone] SHANIQUE ANAYA, SANDRA BYNUM Unavailable PROBLEMS Condition Status Date Provider Notes Preoperative cardiovascular evaluation active Yajaira Renteria FOREST ECONOMIST HTN active Yajaira Renteria FOREST ECONOMIST Family History of Hypertension: active Keila Renteria FOREST ECONOMIST ENCOUNTERS Date Type Provider Location Encounter Diag nosis - In-person encounter Office Visit Deep Russell MD [place] [facility] Family History of Hypertension:HTNPreope rative cardiovascular [...] NP drug use no Yajaira Betancourta l FOREST ECONOMIST smoking status Never smoker Eugenia arredondo FAMILY HISTORY Family Member Condition Mother Negative FH of Coron caridad Artery Disease Father Family History of Hy pertension: INSURANCE PROVIDERS Payer name Policy type / Coverage type [place] red alliance party ID [employer]HC MEDICARE COMPLETE HMO Other [id number] ADVANCE DIRECTIVES Name Date DISCUSSED - [...]
--- OUTSIDE RECORDS SUMMARY | 2024-10-23 14:49 | XMS_ITS | Clinical Summary ---
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
[2024-10-23 15:34] LABS: Basophils Percent Auto 0.3 % (0.2-1.2); Eosinophils Absolute Auto 0.2 K/mm3 (0-0.3); Eosinophils Percent Auto 1.3 % (0-4.4); Hematocrit 50.6 % (42.0-52.0); Hemoglobin 16.6 g/dL (14.0-18.0); Immature Granulocyte Percent A 0.8 % (0-0.5); Lymphocytes Absolute Auto 1.72 K/mm3 (0.9-3.2); Lymphocytes Percent Auto 14.2 % (18.3-44.2); Mean Corpuscular HGB Conc 32.8 g/dl (32-36); Mean Corpuscular Hemoglobin 30.3 pg (26-34); Mean Corpuscular Volume 92.5 fl (80-100); Mean Platelet Volume 8.3 fl (7.4-10.4); Monocytes Absolute Auto 0.6 K/mm3 (0.1-0.6); Monocytes Percent Auto 5.3 % (2.6-8.5); Neutrophils Absolute Auto 9.5 K/mm3 (1.3-6.7); Neutrophils Percent Auto 78.1 % (45.5-73.1); Platelet Count Result 228 k/mm3 (150-375); Red Blood Count 5.47 M/mm3 (4.6-6.20); Red Cell Distribution Width 13.5 % (11.5-14.5); White Blood Count 12.1 K/mm3 (4.5-10.0)
[2024-10-23 15:44] LABS: Hemoglobin A1C 7.4 % (<5.7)
[2024-10-23 15:48] LABS: Urine Cotinine NEGATIVE
[2024-10-23 15:58] LABS: Albumin Level 4.4 g/dL (3.5-5.1); Anion Gap 9 mmol/L (4-12); Blood Urea Nitrogen 23 mg/dL (9-20); Calcium 9.9 mg/dL (8.4-10.2); Carbon Dioxide 25 mmol/L (22-30); Chloride 101 mmol/L (98-107); Estimated Glomerular Filt Rate > 60; Glucose 166 mg/dL (65-110); Potassium 4.3 mmol/L (3.4-5.0); Sodium 135 mmol/L (137-145)
== END 2024-10-23 13:31 | disposition home or self-care (01) ==
LOC: ANHSURGERY 13:35
PROVIDERS: Visit Provider Orthopaedic Surgery
DX: Z01.818 Encounter for other preprocedural examination (principal); M17.12 Unilateral primary osteoarthritis, left knee
CPT/HCPCS: 80048; 80307; 82040; 83036; 85025; 87081

== ENCOUNTER 2024-11-13 01:20 | Day surgery (SDC) | payer MEDICARE, SELFPAY ==
--- NOTE | 2024-10-23 13:58 | PC.NURSE ---
Report to the Outpatient Waiting Room, entrance under the green pavilion located off [facility], at time _6 AM on date __11/13/24 . Planned Procedure Time: _7:30 AM .? Time changes happen often and if your time is changed the preop area will call you the afternoon before. - You and your visitor will be asked to self-screen and do not enter if you have any COVID symptoms. Please call surgeon if you need to reschedule. - A mask is optional within the hospital at this time. Patients may have clear liquids (water, carbonated beverages, clear teas, apple juice) until 3 hours prior to surgery (4:30 AM)with a maximum of 20 ounces. - No food from midnight until time of surgery and no smoking, or chewing tobacco (or any form of nicotine). No chewing gum, candy or mints. - Take only the following medications with a SIP of water on the morning of surgery: PREDNISONE DO NOT STOP ANY OF YOUR OTHER PRESCRIPTION MEDICATIONS PRIOR TO SURGERY EXCEPT THE FOLLOWING Hold all vitamins and supplements for 3 days per anesthesiologist.LAST DOSE 11/09/24 Medications to discontinue per physician IBUPROFEN HOLD 7 DAYS PRE OP PER DR OLIVA Date to take last dose___11/05/24 Please no make-up, nail georgian, hairspray, perfume, deodorant, or body powder the day of surgery.? No jewelry (including any body piercings) or valuables the day of surgery, leave them at home.? Please take a shower or bath the night before, or the morning of, surgery with an antibacterial soap.? Wear comfortable, loose fitting clothing.? Children are encouraged to wear pajamas. - Jewelry must be removed prior to entering the operating room.? Rings and piercings that are not removed may be cut off. - The hospital will not accept responsibility for valuables.? - Please leave all valuables, including medications, at home the day of surgery. If you are going home after surgery, a licensed seasonal delivery driver must drive you home.? - NO public transportation without another adult if you receive anesthesia. - We recommend that an adult stay with you for 24 hours following discharge. - We also recommend that you do not drive, make important decision, drink alcoholic beverages, or take any drugs that were not prescribed by your health care provider for at least 24 hours after your discharge time. For Pediatric surgeries, we recommend two adults accompany the child home. Follow any additional instructions given to you from your surgeon. VERBAL AND WRITTEN instructions given to ___PATIENT__AND WIFE and asked if any additional questions and then verbalized understanding. Patient advised to call surgeon office or pre surgery nurse liaison [phone] if any additional questions.
[2024-10-23 14:01] VITALS: BMI 36.2
[2024-10-23 14:44] VITALS: BP 144/86; PULSE 77; RESP 18; TEMP 37.1; O2SAT 97
--- NOTE | 2024-11-10 11:10 | P.HP_ITS ---
H&P: HPI History of Present Illness Date/Time: 11/10/24 11:10 Chief Complaint: Left knee DJD Narrative: 69-year-old male presents today for left total knee arthroplasty. He underwent right total knee arthroplasty in 2019 and is happy with his results. Patient has moderately severe lateral compartment osteoarthritis left knee. He has not had improvement of his symptoms with nonsurgical treatment. This would include cortisone injection, ibuprofen, methotrexate as well as prednisone. His last cortisone injection was little more than 3 months ago. He had minimal improvement from that. At this point patient feels because of the symptoms he is having on a daily basis that he would rather proceed with total knee arthroplasty at this point rather than continue nonsurgical treatment. Review of Systems Review of Systems: All systems reviewed & are unremarkable except as noted in HPI and below PMFSH Past Medical History Medical History Polymyalgia rheumatica Hypertension High cholesterol Diabetes Surgical History Surgical History History of cataract surgery History of ear surgery left 3x History of total right knee replacement Social History Social History (Updated 10/27/24 @ 07:46 by Evette Bhatti CMA) Smoking status: Never smoker Second hand tobacco smoke exposure: Yes Additional smoking assessment comments: DENIES ANY FORM OF TOBACCO USE Alcohol intake: current Drinks per week: 6 Alcohol use details: BEER Substance use: never Substance use type: does not use Do You Feel Safe in your Home?: Yes Lack of Transportation: No Lack of Food: Never True Current Housing: I Have Housing Concerned About Future Housing: No Difficulty Paying Gas/Electric Bills: No Difficulty Paying for Meds: No Currently Unemployed: No Education: Associate Degree Difficulty w/ Childcare or Family Care: No Living arrangements: with family Occupation/Education: retired 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 Gender identity (if verbalized by the patient): Male Spiritual care concerns: No Meds Home Medications and Allergies Home Medications ?Medication ?Instructions ?Recorded ?Confirmed ?Type lisinopril 10 mg tablet 10 mg PO DAILY 10/29/23 10/30/24 History rosuvastatin 10 mg tablet 10 mg PO DAILY 10/29/23 10/30/24 History testosterone 50 mg/5 gram (1 %) 1 tube transdermal QAM 10/29/23 10/30/24 History transdermal gel calcipotriene 0.005 % scalp 1 applic topical DAILY 08/04/24 10/30/24 History solution clobetasol 0.05 % scalp solution 1 applic topical DAILY 08/04/24 10/30/24 History hydrocodone 5 mg-acetaminophen 325 1 tablet PO Q8H PRN pain 08/04/24 10/30/24 History mg tablet methotrexate sodium 5 mg tablet 7.5 mg PO WEEKLY 08/04/24 10/30/24 History calcium 500 mg (as 2 tablet PO DAILY 10/23/24 10/30/24 History carbonate)-vitamin D3 3.125 mcg (125 unit) tablet folic acid 1 mg tablet 1 mg PO DAILY 10/23/24 10/30/24 History ibuprofen 200 mg tablet (Advil) 400 mg PO TID PRN pain 10/23/24 10/30/24 History prednisone 2.5 mg tablet 5 mg PO DAILY 10/23/24 10/30/24 History dulaglutide 0.75 mg/0.5 mL 2 mg subcut WEEKLY 10/27/24 10/30/24 History subcutaneous pen injector (Trulicity) Allergies Allergy/AdvReac Type Severity Reaction Status Date / Time Penicillins Allergy Severe Anaphylaxis Verified 10/27/24 07:10 hydroxychloroquine AdvReac Severe Blister Verified 10/27/24 07:10 Exam Narrative: 69-year-old male alert pleasant. He is 5 ft 10 to 251 lb BMI is 36.0. Patient has a moderate limp. Moderate effusion the left knee. No redness or warmth. Range of motion is from 7-135 degrees with pain in full flexion. Minimal pain with patellofemoral grind. Minimal tenderness to the medial and lateral joint line. Hip range of motion is full without discomfort, negative Stinchfield m aneuver. He has normal quadriceps strength. 2+ dorsalis pedis and posterior tibial artery pulse palpable. Patient has numbness to light touch sensation to all of his toes. Resp: Auscultation: clear to auscultation bilaterally Cardio: Rate: regular rate Rhythm: regular rhythm Assessment and Plan Assessment and plan (1) Left knee DJD: Qualifiers: Osteoarthritis type: other secondary Qualified Code(s): M17.5 - Other unilateral secondary osteoarthritis of knee Code(s): M17.12 - Unilateral primary osteoarthritis, left knee Status: Acute Plan 69-year-old male who has severely symptomatic osteoarthritis left knee. It is moderately severe on the x-rays. He has not had significant improvement with nonsurgical treatment feels he is ready proceed with total knee arthroplasty at this point rather than continue nonsurgical treatment. Surgical procedures well as the risks and complications were discussed in detail all questions were answered we will proceed. Patient has seen cardiology and has undergone a stress test. Ejection fraction was at 56%. There was no abnormalities noted and has been cleared from cardiology standpoint. He will see his primary care doctor for pre-surgical clearance. He will skip his methotrexate at dose 1 week prior to surgery and 1 week after surgery. He will also stop his ibuprofen 1 week prior to surgery. He will continue on his prednisone through her surgery. Patient's nasal swab was negative. Hemoglobin 16.6 and platelets are 228. Chem panel showed elevation of his spot glucose. Hemoglobin A1c was 7.4. Creatinine 0.74
[2024-11-13] VITALS (16 sets, daily range): BP systolic 133–164; BP diastolic 70–97; PULSE 56–92; RESP 14–20; TEMP 36.8–37.6; O2SAT 93–99; BMI 35.4
--- NOTE | ~2024-11-13 | XR_ITS ---
EXAMINATION: [id number] DATE: 11/13/2024 12:28 INDICATION: Postoperative evaluation following left total knee arthroplasty. TECHNIQUE: Anteroposterior and lateral views of the left knee were obtained. COMPARISON: 08/04/2024 FINDINGS: Left total knee arthroplasty with patellar resurfacing appears well seated and in near anatomic align ment. No fractures identified. Expected postoperative subcutaneous, intramedullary and intra-articul ar gas. IMPRESSION: 1. Left total knee arthroplasty, negative for postoperative purposes. Reviewed, dictated and finalized at location B.
[2024-11-13] MEDS: LACTATED RINGERS 1,000 ML 30 ML IV CONT ×2 (06:40→12:25)
[2024-11-13] MEDS: ACETAMINOPHEN 500 MG TABLET 1000 MG PO (06:41)
[2024-11-13] MEDS: VANCOMYCIN 1,750 MG/NS 500 ML BAG 250 MG IVPB (06:41)
[2024-11-13] MEDS: TRANEXAMIC ACID 1,000MG/ISO100 1,000 MG/100 ML BAG 200 MG IVPB (07:05)
--- NOTE | 2024-11-13 07:16 | WPDHPUPDATE1 ---
History and Physical Update Update Date/Time: 11/13/24 07:16 History and Physical has been reviewed, including an updated exam of the patient. There are NO changes in the patient's condition. Risks, benefits, and alternatives have been discussed and questions answered. Patient agrees to proceed with procedure.
--- NOTE | 2024-11-13 07:20 | P.PNAN_ITS ---
Anes - Initial Pre Proc Eval Procedure: Operation Date: 11/13/24 07:30 Proposed Procedures p Left Total Knee Arthroplasty - Kwabena Mccormack MD Date/Time: 11/13/24 07:20 Surgeon: Kwabena Mccormack MD Pre Op Diagnosis: OA left knee Patient Data Age: 69 Gender: M Height: 1.78 m Weight: 114.6 kg Last Vital Signs Temp 98.7 F 10/23/24 14:44 Pulse 77 10/23/24 14:44 Resp 18 10/23/24 14:44 BP 144/86 H 10/23/24 14:44 Pulse Ox 97 10/23/24 14:44 O2 Del Method Room Air 10/23/24 14:44 Allergies Allergy/AdvReac Type Severity Reaction Status Date / Time Penicillins Allergy Severe Anaphylaxis Verified 10/27/24 07:10 hydroxychloroquine AdvReac Severe Blister Verified 10/27/24 07:10 Home Medications ?Medication ?Instructions ?Recorded ?Confirmed ?Type lisinopril 10 mg tablet 10 mg PO DAILY 10/29/23 10/30/24 History rosuvastatin 10 mg tablet 10 mg PO DAILY 10/29/23 10/30/24 History testosterone 50 mg/5 gram (1 %) 1 tube transdermal QAM 10/29/23 10/30/24 History transdermal gel calcipotriene 0.005 % scalp 1 applic topical DAILY 08/04/24 10/30/24 History solution clobetasol 0.05 % scalp solution 1 applic topical DAILY 08/04/24 10/30/24 History hydrocodone 5 mg-acetaminophen 325 1 tablet PO Q8H PRN pain 08/04/24 10/30/24 History mg tablet methotrexate sodium 5 mg tablet 7.5 mg PO WEEKLY 08/04/24 10/30/24 History calcium 500 mg (as 2 tablet PO DAILY 10/23/24 10/30/24 History carbonate)-vitamin D3 3.125 mcg (125 unit) tablet folic acid 1 mg tablet 1 mg PO DAILY 10/23/24 10/30/24 History ibuprofen 200 mg tablet (Advil) 400 mg PO TID PRN pain 10/23/24 10/30/24 History prednisone 2.5 mg tablet 5 mg PO DAILY 10/23/24 10/30/24 History dulaglutide 0.75 mg/0.5 mL 2 mg subcut WEEKLY 10/27/24 10/30/24 History subcutaneous pen injector (Trulicity) Laboratory Tests 11/13/24 11/13/24 06:26 06:35 POC Capillary Glucose 194 H mg/dl (65-105) Blood Type A Positive Antibody Screen Pending Patient hx anesthesia problems: none Family hx anesthesia problems: none Results Review: All pre-operative results and documents have been reviewed as part of the pre- operative evaluation. [facility] Past Medical History Medical History Polymyalgia rheumatica Hypertension High cholesterol Diabetes Surgical History Surgical History History of cataract surgery History of ear surgery left 3x History of total right knee replacement Social History Social History (Updated 10/27/24 @ 07:46 by Evette Bhatti CMA) Smoking status: Never smoker Second hand tobacco smoke exposure: Yes Additional smoking assessment comments: DENIES ANY FORM OF TOBACCO USE Alcohol intake: current Drinks per week: 6 Alcohol use details: BEER Substance use: never Substance use type: does not use Do You Feel Safe in your Home?: Yes Lack of Transportation: No Lack of Food: Never True Current Housing: I Have Housing Concerned About Future Housing: No Difficulty Paying Gas/Electric Bills: No Difficulty Paying for Meds: No Currently Unemployed: No Education: Associate Degree Difficulty w/ Childcare or Family Care: No Living arrangements: with family Occupation/Education: retired 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 Informed Consent: The patient's anesthetic plan and its attendant risks and benefits were discussed with the patient/family/POA. Questions were solicited and answers provided to the satisfaction of the patient/family/POA.
[2024-11-13] MEDS: ceFAZolin 2 GM/D5W 50 ML 2 GM/50 ML BAG IVPB ×2 (07:36→16:36)
[2024-11-13] MEDS: SODIUM CHLORIDE 0.9% IV 37.7 ML, MORPHINE SULFATE INJ (*CRX) 2 MG, ROPivacaine HCL 1% 2... INFILTRATE (08:51)
[2024-11-13] MEDS: GENTAMICIN BONE CEMENT REFOBACIN 1 EACH TOPICAL ×2 (11:24)
[2024-11-13] MEDS: TRANEXAMIC ACID 1,000 MG/10 ML AMPUL 1000 MG IV PUSH (11:26)
[2024-11-13] MEDS: fentaNYL CITRATE INJ (*CRX) 100 MCG/2 ML VIAL 25 MCG IV PUSH ×8 (12:34→13:33)
--- NOTE | 2024-11-13 12:55 | SUR.PHASEI ---
Dr. Sutton aware of elevated BG. No further treatment at this time.
--- NOTE | 2024-11-13 13:09 | P.OP_ITS ---
Procedure Note - Detailed Date of Procedure 11/13/24 Pre-op Diagnosis Inflammatory arthritis left knee with grade 2 valgus deformity and flexion contracture, obesity BMI 35.4 Post-op Diagnosis Same Procedure Performed left total knee arthroplasty Surgeon Kwabena Mccormack MD Film Projector Operator Otoniel Anesthesia General Description of Procedure patient was brought to the operating room and general anesthesia was administered. He received 2 g of Ancef weight based vancomycin 1 g of TXA preoperatively. The left knee was prepped and draped usual fashion. Under anesthesia he still had a 15 degree flexion contracture. Mild valgus deformity noted. Limb was exsanguinated tourniquet elevated to 300 mmHg. 8 in longitudinal midline incision was used and a standard parapatellar arthrotomy utilized. Partial excision of infrapatellar fat pad was performed and a quadriceps synovectomy carried out. There was thickened tenosynovium around the knee. There were collections of white material of the same texture of rice bodies but larger clumps that were removed. It is presumed these areas repr esented necrotic Francy synovium. The joint fluid was hazy and slightly cloudy consistent with inflammatory arthritis. the patella measured 23.5 mm in thickness and was cut to 16 mm. Bone quality was very good. Protector cap applied. A guide derek was inserted on femoral canal after aspiration of canal contents using the 5 degree valgus cutting bushing, 9 mm of bone removed the distal femur. This removed very little laterally. Next the tibial plateau was cut. Our goal was to make a skim cut off the tibial plateau. Initial cut was made perpendicular to the axis of tibia in this left the remaining cartilage on the posterior 25% of the tibial plateau. Therefore an additional 2 mm of bone was removed which got through the remaining articular cartilage. Bone quality was excellent. Meniscal remnants were excised and PCL was recessed. Flexion gap measured 10 mm medially and 14 mm laterally. The femoral sizing guide was applied to the distal femur set at 5? of external rotation which matched [place] line. Posterior referencing pinholes were placed and the femur was cut to a size 67.5. This fit line to line medial to lateral. Was a mm off the anterior cortex proximally at the proximal edge of the anterior flange. Tibia was sized to a 75 vanguard. This fit line to line posterolateral to anteromedial at proper rotation this was punched. We trialed and we found that the flexion gap was appropriate with either 11 or 12 insert 11 being a little loose. We lacked substantial amount of extension. In additional 2 mm of bone removed the distal femur at this time and posterior capsule release performed. On read trialing, the knee was still far too tight to allow the extension with the 11 insert booking open medially a little bit with the tightness laterally. Therefore the iliotibial band and lateral capsule was released approximately 1 cm proximal to the tibial plateau and the posterolateral corner was released. We identified the lateral collateral ligament and brought the line of lateral capsular release distally to the level of the cut surface the tibial plateau releasing the posterolateral corner over the surface of the lateral collateral to the lateral edge of the popliteus again to level the joint line. Hemostasis was achieved. Popliteus and lateral collateral ligament were preserved but posterolateral capsule had been completely released. On read trialing the knee still lacked about 7? of extension but without the booking open medially. We carefully revisited the posterior capsule release which was completed to the level of the and origin of the lateral head of the gastrocnemius. An additional mm of bone was removed from the distal femur. I elected to put 6? of valgus on the distal femoral cut which allowed us to take 2 mm of bone on the lateral femoral condyle 1 mm of bone on the medial femoral condyle and with the 11 insert we still had a positive bounce lacking about 3? of extension with no play laterally and varus stress. At 20? of flexion there was 5 mm of medial opening on valgus stress. Therefore with these parameters I concluded that it would be best to use a constrained implant to control medial laxity in extension. As the 11 was a little bit loose in flexion I concluded that we would need a 12 mm constrained poly and I converted the distal femoral cut alignment back to 5? of valgus by removing additional 1 mm of bone from the lateral femoral condyle and 2 mm from the medial femoral condyle confirming 5? anatomic axis valgus alignment with the 5 degree wing on the intramedullary derek. The 360 femoral trial was pinned to the distal femur after centering it properly and the intercondylar box cut out and the intramedullary canal reamed with the Boss Reamer and we trialed with the constrained 12 mm SSK trial. Is this had no play laterally in extension. Anterior drawer play at 90? and 70? was very appropriate. [place] flexion was to 130. In additional mm of bone was removed from the distal femur chamfer is revisited roof of the intercondylar box revisited and on trialing with the 12 insert now the knee had full extension with negative bounce with 1 mm of lateral opening in extension. Medial opening was controlled by the SSK polyethylene post. The patella was sized to the 7.8 mm thick by 34 mm component and we drilled the lug holes for this and composite thickness was 23.5 mm. Patellar tracking was poor until a lateral retinacular release was performed. Then patellar tracking was nearly perfect throughout range of motion. the tourniquet had been lowered earlier at 92 minutes at this point we re-exsanguinated the limb and re elevated the tourniquet to 300 mmHg. A 22 mm cement restrictor was placed at the appropriate depth in the femoral canal. The step drill was used to make multiple perforations in the distal femur and tibial plateau. The bony surfaces were thoroughly irrigated and dried. Using 2 batches of methylmethacrylate 1 containing the gentamicin powder, the cement was immediately applied the 75 tibial tray and then the 67.5 left vanguard SSK femoral component. Cement was applied the tibial plateau pressurized and the tibial component fully seated. Cement was used to coat the femur and the intramedullary canal and the 67.5 SSK femoral component fully seated and the knee brought into extension with a 13 mm 5 and 1 poly trial for cement pressurization. The remaining cement was getting to thick and doughy therefore I elected to mix a half batch of quick set cement and cement the patella. Tourniquet was released total tourniquet time 114 minutes. After all batches of cement were cured excess cement was sought for removed and hemostasis was confirmed. We trialed with the 12 SSK trial which gave range of motion from 0-130 degrees. Patellar impingement initiated at 1:30 a.m.. Appropriate stability throughout range of motion. The real 12 SSK was placed locked with a locking pin range of motion stability and patellar tracking reconfirmed. We injected the anesthetic cocktail into the periarticular tissues. after final irrigation with Ancef solution 500 mg of vancomycin powder were sprinkled into the wound and the arthrotomy closed over this using 2. Vicryl suture and 1. Unidirectional barbed Stratafix suture. Skin closed with 2 subcutaneous Vicryl and 3-0 subcuticular Monocryl and glue. EBL was 300 cc. Two additional g of Ancef and 1 g of TXA given at time wound closure. There were no known complications. There is extra difficulty with the procedure due to obesity with BMI of 35.4 and the flexion contracture with valgus deformity which had more than hour operative time to the procedure. [facility] Billing Surgery - Charge Forward: Surgery Billing ( Left total knee replacement, extra difficulty)
--- NOTE | 2024-11-13 13:36 | PM.OP ---
Procedure Note - Brief Procedure Note - Brief Date of procedure: 11/13/24 OA left knee Procedure performed: Left total knee arthroplasty Surgeon: PATRICIA Johnson Findings: 69-year-old male who underwent left total arthroplasty on 11/13. I was involved in the procedure including positioning the patient on the OR table in 1st assisting through the time surgery. Total time spent was 3-1/2 hours
[2024-11-13] MEDS: ARTIFICIAL TEARS OPHTH SOLN 15 ML BOTTLE 1 DROP EACH EYE (14:29)
[2024-11-13] MEDS: PROPARACAINE HCL 0.5% 15 ML OPHTH SOLN 1 DROP EACH EYE (14:34)
[2024-11-13] MEDS: DICLOFENAC SODIUM 0.1% OPHTH SOLN 2.5 ML BOTTLE 1 DROP EACH EYE ×2 (14:35→21:32)
--- NOTE | 2024-11-13 15:37 | ADMGEN ---
This patient, Donal Lopes, was admitted to 3 [facility] Surg Room 309-01. Patient/family oriented to hospital policies and general routines including ID bracelet, bed and alarms, visiting hours, pain management, procedures, bathroom and other care routines, personal items, smoking policy, room service/diet, and visiting hours. Information on how to activate the Rapid Response Team has been discussed. Patient/Family are encouraged to report perceived risks to care and to ask questions if they do not understand what they are told or what they should do.
[2024-11-13] MEDS: oxyCODONE HCL (*CRX) 5 MG TAB IR PO ×2 (16:37→21:24)
[2024-11-13] MEDS: KETOROLAC 15 MG/ML VIAL (*BKC) IV PUSH ×2 (16:37→21:24)
[2024-11-13] MEDS: ACETAMINOPHEN 325 MG TABLET 650 MG PO ×2 (16:37→21:23)
[2024-11-13] MEDS: SENNA/DOCUSATE SODIUM TABLET 2 TAB PO (16:37)
[2024-11-13] MEDS: VANCOMYCIN 1,000 MG/NS 250 ML 1,000 MG/250 ML BAG 250 MG IVPB (18:48)
--- NOTE | 2024-11-13 19:13 | P.CONIM_ITS ---
Assessment and Plan Assessment and plan (1) Left knee DJD: Qualifiers: Osteoarthritis type: other secondary Qualified Code(s): M17.5 - Other unilateral secondary osteoarthritis of knee Code(s): M17.12 - Unilateral primary osteoarthritis, left knee Status: Acute Assessment and Plan: - ambulate with assistance and up to chair - use IS - neurovasc checks - see order for intervals - SCDs, Eliquis started on 11/14 - analgesics and antiemetics p.r.n. - monitor labs in AM - CBC and BMP - bowel regimen: docusate/senna, polyethylene glycol - PT/OT (2) Diabetes: Qualifiers: Diabetes mellitus complication status: without complication Diabetes mellitus residential insulin use: without technician terminal and repeater use Diabetes mellitus type: type 2 Qualified Code(s): E11.9 - Type 2 diabetes mellitus without complications Code(s): E11.9 - Type 2 diabetes mellitus without complications Status: Chronic Assessment and Plan: - hypoglycemia protocol - POC blood glucose ACHS - home medication: Hold Trulicity (NF) - correct regimen ordered - high dose TIDWM, based off BMI - A1C 7.4% on 10/23/2024 (3) Hypertension: Qualifiers: Hypertension type: primary hypertension Qualified Code(s): I10 - Essential (primary) hypertension Code(s): I10 - Essential (primary) hypertension Status: Chronic Assessment and Plan: - chronic, currently 153/80 - home medications: Continue lisinopril on 11/14 - monitor Plan Diet: Diabetic GI Prophylaxis: Famotidine p.o. DVT Prophylaxis: SCDs, Eliquis IV fluids: NS at 125 mL/hour x8 hours Lines/Tubes: Peripheral IV Code Status: Full code HPI Date of Consult Consult date: 11/13/24 Requesting Physician: Kwabena Mccormack MD Primary Care Provider: Danielle Lindsey Consult Narrative Reason for consult: Medical Management Narrative: 69 y/o M with PMH of polymyalgia rheumatica, hypertension, hyperlipidemia, and diabetes presents here for a total left knee arthroplasty. The patient presents here today for a left total knee arthroplasty with [place] ANAYA. He underwent a right total knee arthroplasty in 2019 with an unremarkable recovery and he is pleased with the results. He has a history of moderately severe lateral compartment osteoarthritis of the left knee. He reports little improvement with the conservative measures he has undergone previously. This included cortisone injection, ibuprofen, methotrexate, and prednisone. Last cortisone injection was approximately 3 months ago. He reports minimal improvement with the cortisone injection. Due to the pain on a daily basis and failure of conservative measures he elected to move forward with surgical management. Post surgery he is reporting reduced pain compared to how he felt prior to surgery. Preop VS: 98.7? F, HR 77, RR 18, 144/86, and 97% on RA. Preop workup: WBC 12.1, no anemia, sodium 135, creatinine 0.74 and GFR >60, glucose 166, A1c 7.4% Review of Systems Review of Systems: All systems reviewed & are unremarkable except as noted in HPI and below PMFSH Past Medical History Medical History (Updated 11/13/24 @ 19:19 by Arely Edwards APRN) Polymyalgia rheumatica Hypertension High cholesterol Diabetes Surgical History Surgical History History of cataract surgery History of ear surgery left 3x History of total right knee replacement Social History Social History (Updated 10/27/24 @ 07:46 by Evette Bhatti CMA) Smoking status: Never smoker Second hand tobacco smoke exposure: Yes Additional smoking assessment comments: DENIES ANY FORM OF TOBACCO USE Alcohol intake: current Drinks per week: 6 Alcohol use details: BEER Substance use: never Substance use type: does not use Do You Feel Safe in your Home?: Yes Lack of Transportation: No Lack of Food: Never True Current Housing: I Have Housing Concerned About Future Housing: No Difficulty Paying Gas/Electric Bills: No Difficulty Paying for Meds: No Currently Unemployed: No Education: Associate Degree Difficulty w/ Childcare or Family Care: No Living arrangements: with family Occupation/Education: retired 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 Gender identity (if verbalized by the patient): Male Spiritual care concerns: No Meds Home Medications and Allergies Home Medications ?Medication ?Instructions ?Recorded ?Confirmed ?Type lisinopril 10 mg tablet 10 mg PO DAILY 10/29/23 10/30/24 History rosuvastatin 10 mg tablet 10 mg PO DAILY 10/29/23 10/30/24 History testosterone 50 mg/5 gram (1 %) 1 tube transdermal QAM 10/29/23 10/30/24 History transdermal gel calcipotriene 0.005 % scalp 1 applic topical DAILY 08/04/24 10/30/24 History solution clobetasol 0.05 % scalp solution 1 applic topical DAILY 08/04/24 10/30/24 History hydrocodone 5 mg-acetaminophen 325 1 tablet PO Q8H PRN pain 08/04/24 10/30/24 History mg tablet methotrexate sodium 5 mg tablet 7.5 mg PO WEEKLY 08/04/24 10/30/24 History calcium 500 mg (as 2 tablet PO DAILY 10/23/24 11/13/24 History carbonate)-vitamin D3 3.125 mcg (125 unit) tablet folic acid 1 mg tablet 1 mg PO DAILY 10/23/24 11/13/24 History ibuprofen 200 mg tablet (Advil) 400 mg PO TID PRN pain 10/23/24 11/13/24 History prednisone 2.5 mg tablet 5 mg PO DAILY 10/23/24 11/13/24 History dulaglutide 0.75 mg/0.5 mL 2 mg subcut WEEKLY 10/27/24 11/13/24 [facility] Allergies Allergy/AdvReac Type Severity Reaction Status Date / Time Penicillins Allergy Severe Anaphylaxis Verified 11/13/24 07:40 hydroxychloroquine AdvReac Severe Blister Verified 11/13/24 07:40 Vital Signs Vital Signs - 24 hr 11/13/24 06:10 11/13/24 12:25 11/13/24 12:40 Temperature 98.6 F 99.6 F Pulse Rate 76 92 89 Respiratory Rate 16 18 18 Blood Pressure 140/73 144/80 H 158/90 H Pulse Oximetry 97 98 97 Oxygen Delivery Room Air Simple Face Mask Simple Face Mask Oxygen Flow Rate 6 8 11/13/24 12:55 11/13/24 13:10 11/13/24 13:25 Temperature Pulse Rate 87 83 90 Respiratory Rate 16 18 18 Blood Pressure 152/97 H 151/88 H 147/88 H Pulse Oximetry 98 99 93 Oxygen Delivery Simple Face Mask Simple Face Mask Room Air Oxygen Flow Rate 8 8 11/13/24 13:40 11/13/24 13:55 11/13/24 14:10 Temperature Pulse Rate 90 91 87 Respiratory Rate 14 20 16 Blood Pressure 160/89 H 164/80 H 154/86 H Pulse Oximetry 94 93 95 Oxygen Delivery Nasal Cannula Nasal Cannula Nasal Cannula Oxygen Flow Rate 2 2 2 11/13/24 14:25 11/13/24 14:40 11/13/24 14:55 Temperature Pulse Rate 89 85 86 Respiratory Rate 16 18 18 Blood Pressure 148/82 H 143/78 H 150/82 H Pulse Oximetry 94 95 95 Oxygen Delivery Nasal Cannula Nasal Cannula Nasal Cannula Oxygen Flow Rate 2 2 2 11/13/24 15:39 11/13/24 15:40 11/13/24 18:13 Temperature 98.8 F Pulse Rate 83 Respiratory Rate 18 Blood Pressure 153/80 H Pulse Oximetry 95 96 Oxygen Delivery Nasal Cannula Room Air Oxygen Flow Rate 2 Exam Const: General: comfortable and no acute distress Other: , male, nontoxic appearance HENMT: Face/Nose/Sinus: Normal nares present Mouth: Yes moist mucous membranes Eyes: General: appearance normal, both eyes and all related structures Sclera: sclerae normal Pupils: Equal, round and reactive pupils present EOM: EOMs intact bilaterally Resp: Effort & Inspection: normal respiratory effort Auscultation: clear to auscultation bilaterally Cardio: Rate: regular rate Rhythm: regular rhythm Other: S1-S2 present without murmur, rub, ectopy GI: Other: Abdomen soft, nondistended, nontender. Normoactive bowel sounds in all quadrants. Skin: General skin exam: normal color and no rashes or lesions noted Other: Postsurgical incision to left knee. Moderate edema. No overt tenderness. Dressing CDI. Neuro: Speech: normal speech Motor exam (neuro): 5/5 motor strength present throughout Sensory Exam: normal sensation Other: A&O x4 Extrem: General: normal to inspection Psych: Mental Status: mental status grossly normal Affect: normal affect Other: Good insight and judgment, pleasant Quality VTE Prophylaxis VTE prophylaxis: mechanical ordered and pharmacologic ordered Hospitalist [facility] Advance Care Plan I have confirmed that the patient's Advanced Care Plan is present, code status is documented, or surrogate decision maker is listed in patient medical record.: Yes Medication Reconciliation I have utilized all available resources to obtain, update and review the patients current medications (includes all prescriptions, OTC, herbals, cannabis, and nutritional supplements).: Yes
[2024-11-13] MEDS: FAMOTIDINE 20 MG TABLET PO (21:24)
[2024-11-14] MEDS: ACETAMINOPHEN 325 MG TABLET 650 MG PO ×3 (00:35→08:43)
[2024-11-14] MEDS: oxyCODONE HCL (*CRX) 5 MG TAB IR PO ×3 (00:35→08:44)
[2024-11-14] MEDS: ceFAZolin 2 GM/D5W 50 ML 2 GM/50 ML BAG IVPB ×2 (00:36→08:40)
[2024-11-14 02:13] VITALS: BP 118/73; PULSE 76; RESP 18; TEMP 36.7; O2SAT 99
[2024-11-14] MEDS: KETOROLAC 15 MG/ML VIAL (*BKC) IV PUSH (03:27)
[2024-11-14] MEDS: DICLOFENAC SODIUM 0.1% OPHTH SOLN 2.5 ML BOTTLE 1 DROP EACH EYE (05:50)
[2024-11-14 06:00] VITALS: BP 111/72; PULSE 62; RESP 18; TEMP 36.4; O2SAT 99
[2024-11-14] MEDS: VANCOMYCIN 1,000 MG/NS 250 ML 1,000 MG/250 ML BAG 250 MG IVPB (06:05)
[2024-11-14 06:18] LABS: Hematocrit 40.1 % (42.0-52.0); Hemoglobin 13.2 g/dL (14.0-18.0); Immature Granulocyte Percent A 0.5 % (0-0.5); Lymphocytes Absolute Auto 1.75 K/mm3 (0.9-3.2); Mean Corpuscular HGB Conc 32.9 g/dl (32-36); Mean Corpuscular Hemoglobin 30.8 pg (26-34); Mean Corpuscular Volume 93.7 fl (80-100); Nucleated Red Blood Cells Absolute Auto 0.000 K/mm3 (0.0-0.012); Nucleated Red Blood Cells Perc 0.0 % (0.0-0.2); Platelet Count Result 176 k/mm3 (150-375); Red Blood Count 4.28 M/mm3 (4.6-6.20); White Blood Count 11.6 K/mm3 (4.5-10.0)
[2024-11-14 06:29] LABS: Anion Gap 5 mmol/L (4-12); Blood Urea Nitrogen 17 mg/dL (9-20); Calcium 8.1 mg/dL (8.4-10.2); Carbon Dioxide 24 mmol/L (22-30); Chloride 104 mmol/L (98-107); Estimated CRCL calculation 97 ml/min; Estimated Glomerular Filt Rate > 60; Glucose 162 mg/dL (65-110); Potassium 3.9 mmol/L (3.4-5.0); Sodium 133 mmol/L (137-145)
--- NOTE | 2024-11-14 07:06 | P.PNOP_ITS ---
Subjective Subjective Date/Time Seen: 11/14/24 07:06 Interval history: Postop day 1 patient is alert. He is afebrile vital signs are stable. Morning labs are noted. Labs are all stable. Patient was up yesterday walking with therapy and doing exercises. Feels he did very well with that. Pain overall is very well tolerated with the pain regimen he is on. Eliquis will be started this morning. His dressing is dry and intact. Neurovascularly he is intact. He is able do a straight leg raise in the bed this morning. Overall patient is doing very well. He is very happy with the way he is feeling at this point. He is eager to go home today. We will have the patient work with therapy this morning and then once IV antibiotics been completed be discharged home late this morning. Objective Data Vital Signs Vital Signs: Vital Signs - 24 hr 11/13/24 12:25 11/13/24 12:40 11/13/24 12:55 Temperature 99.6 F Pulse Rate 92 89 87 Respiratory Rate 18 18 16 Blood Pressure 144/80 H 158/90 H 152/97 H Pulse Oximetry 98 97 98 Oxygen Delivery Simple Face Mask Simple Face Mask Simple Face Mask Oxygen Flow Rate 6 8 8 11/13/24 13:10 11/13/24 13:25 11/13/24 13:40 Temperature Pulse Rate 83 90 90 Respiratory Rate 18 18 14 Blood Pressure 151/88 H 147/88 H 160/89 H Pulse Oximetry 99 93 94 Oxygen Delivery Simple Face Mask Room Air Nasal Cannula Oxygen Flow Rate 8 2 11/13/24 13:55 11/13/24 14:10 11/13/24 14:25 Temperature Pulse Rate 91 87 89 Respiratory Rate 20 16 16 Blood Pressure 164/80 H 154/86 H 148/82 H Pulse Oximetry 93 95 94 Oxygen Delivery Nasal Cannula Nasal Cannula Nasal Cannula Oxygen Flow Rate 2 2 2 11/13/24 14:40 11/13/24 14:55 11/13/24 15:39 Temperature Pulse Rate 85 86 Respiratory Rate 18 18 Blood Pressure 143/78 H 150/82 H Pulse Oximetry 95 95 95 Oxygen Delivery Nasal Cannula Nasal Cannula Nasal Cannula Oxygen Flow Rate 2 2 2 11/13/24 15:40 11/13/24 18:13 11/13/24 20:00 Temperature 98.8 F Pulse Rate 83 Respiratory Rate 18 Blood Pressure 153/80 H Pulse Oximetry 96 Oxygen Delivery Room Air Room Air Oxygen Flow Rate 11/13/24 22:13 11/13/24 22:39 11/14/24 02:13 Temperature 98.2 F 98.1 F Pulse Rate 56 L 76 Respiratory Rate 16 16 18 Blood Pressure 133/70 118/73 Pulse Oximetry 93 99 Oxygen Delivery Oxygen Flow Rate 11/14/24 06:00 Temperature 97.6 F Pulse Rate 62 Respiratory Rate 18 Blood Pressure 111/72 Pulse Oximetry 99 Oxygen Delivery Oxygen Flow Rate Intake/Output Intake/Output: Intake & Output 11/11/24 11/12/24 11/13/24 11/14/24 23:59 23:59 23:59 23:59 Intake Total 1690 250 Balance 1690 250 Meds/Results Medications: Active Medications Generic Name Dose Route Start Last Admin Trade Name Freq PRN Reason Stop Dose Admin Acetaminophen 650 mg 11/13/24 21:00 11/14/24 05:49 Acetaminophen 325 Mg Tablet PO 650 mg Q4H ALINE Administration Apixaban 2.5 mg 11/14/24 09:00 Apixaban 2.5 Mg Tablet PO 11/25/24 21:01 Q12HR ALINE Artificial Tears 1 drop 11/13/24 14:16 11/13/24 14:29 Artificial Tears Ophth Soln 15 Ml Bottle EACH EYE 1 drop Q2H PRN Administration Dry Eye(s) Celecoxib 200 mg 11/14/24 08:00 Celecoxib 200 Mg Capsule PO DAILY@0800 [facility] Dextrose 12.5 gm 11/13/24 19:18 Dextrose 50% 25 Gm/50 Ml Syringe IV PUSH PRN PRN Hypoglycemia Protocol Diclofenac Sodium 1 drop 11/13/24 14:40 11/14/24 05:50 Diclofenac Sodium 0.1% Ophth Soln 2.5 Ml Bottle EACH EYE 11/17/24 14:39 1 drop Q8HR ALINE Administration Diphenhydramine HCl 25 mg 11/13/24 12:27 Diphenhydramine Hcl Inj 50 Mg/Ml Vial IV PUSH Q6H PRN Itching Doxycycline Hyclate 100 mg 11/14/24 09:00 Doxycycline Hyclate 100 Mg Tablet PO Q12HR ALINE Famotidine 20 mg 11/13/24 21:00 11/13/24 21:24 Famotidine 20 Mg Tablet PO 20 mg Q12HR ALINE Administration Folic Acid 1 mg 11/14/24 09:00 Folic Acid 1 Mg Tablet PO DAILY ALINE Glucagon 1 mg 11/13/24 19:18 Glucagon For Inj 1 Mg Vial IM PRN PRN Hypoglycemia Protocol Glucose 15 gm 11/13/24 19:18 Glucose Oral Gel 15 Gm Of Glucse In 37.5 Gm Tube PO PRN PRN Hypoglycemia Protocol Cefazolin Sodium 2 gm in 50 mls @ 100 mls/hr 11/13/24 16:00 11/14/24 01:06 Ancef 2 Gm/D5w 50 Ml IVPB 11/14/24 08:29 Infused Q8H [facility] Infusion Vancomycin HCl 1,000 mg in 250 mls @ 250 mls/hr 11/13/24 19:00 11/14/24 06:05 Vancomycin 1,000 Mg/Ns 250 Ml IVPB 11/14/24 07:59 250 mls/hr Q12H ALINE Administration Dextrose 1,000 mls @ 100 mls/hr 11/13/24 19:18 Dextrose 5% 1,000 Ml IVPB PRN PRN Hypoglycemia Protocol Insulin Aspart 4 - 8 units 11/14/24 08:00 Insulin Aspart (*Bkc) 100 Units/Ml SUB-Q TIDWM [facility] Protocol Lisinopril 10 mg 11/14/24 09:00 Lisinopril 10 Mg Tablet PO DAILY [facility] Miscellaneous Information 0 each 11/13/24 00:01 Clobetasol Solution Nonform Can Pt Hold While Here? XX 12/13/24 00:00 CLARIFY [facility] Miscellaneous Information 0 each 11/13/24 00:01 Calcipotriene Nonform Can Pt Bring From Home Or Hold While Here? XX 12/13/24 00:00 CLARIFY [facility] Morphine Sulfate 2 mg 11/13/24 12:27 Morphine Sulfate (*Crx) 2 Mg/Ml Inj IV PUSH Q2H PRN Breakthrough Pain Rated 4-6 or NPO Naloxone HCl 0.1 mg 11/13/24 12:27 Naloxone Hcl 0.4 Mg/Ml Vial IV PUSH Q2M PRN Opiate Reversal Non-Formulary Medication 1 applic 11/14/24 09:00 Calcipotriene TOPICAL 12/14/24 08:59 DAILY [facility] Non-Formulary Medication 1 applic 11/14/24 09:00 Clobetasol TOPICAL 12/14/24 08:59 DAILY [facility] Ondansetron HCl 4 mg 11/13/24 12:27 Ondansetron Inj 4 Mg/2 Ml Vial IV PUSH Q4H PRN Nausea And Vomiting Oxycodone HCl 5 mg 11/13/24 12:27 Oxycodone Hcl (*Crx) 5 Mg Tab Ir PO Q4H PRN Pain Rated 7-10 Oxycodone HCl 5 mg 11/13/24 21:00 11/14/24 05:49 Oxycodone Hcl (*Crx) 5 Mg Tab Ir PO 5 mg Q4HR ALINE Administration Polyethylene Glycol 17 gm 11/14/24 09:00 Polyethylene Glycol 3350 17 Gm Powd.Pack PO QAM ALINE Prednisone 5 mg 11/14/24 09:00 Prednisone 5 Mg Tablet PO DAILY [facility] Rosuvastatin Calcium 10 mg 11/14/24 09:00 Rosuvastatin 10 Mg Tablet PO DAILY [facility]INE Senna/Docusate Sodium 2 tab 11/13/24 17:00 11/13/24 16:37 Senna/Docusate Sodium Tablet PO 2 tab BID ALINE Administration Radiology Results: ITS Impressions Knee X-Ray 11/13/24 14:16 IMPRESSION: 1. Left total knee arthroplasty, negative for postoperative purposes. Labs Labs: Laboratory Results - last 24 hr 11/13/24 11/13/24 11/13/24 06:26 12:28 21:41 WBC RBC Hgb Hct MCV MCH MCHC RDW Plt Count MPV Immature Gran % (Auto) Neut % (Auto) Lymph % (Auto) Stephens % (Auto) Eos % (Auto) Baso % (Auto) Lymph # (Auto) Stephens # (Auto) Eos # (Auto) Baso # (Auto) Abs Immat Gran (auto) Absolute Neuts (auto) Absolute Nucleated RBC Nucleated RBC % Sodium Potassium Chloride Carbon Dioxide Anion Gap BUN Creatinine Estim Creat Clear Calc Estimated GFR Glucose POC Capillary Glucose 284 H 243 H Calcium Blood Type A Positive Antibody Screen Negative 11/14/24 05:47 WBC 11.6 H RBC 4.28 L Hgb 13.2 L D Hct 40.1 L MCV 93.7 MCH 30.8 MCHC 32.9 RDW 13.8 Plt Count 176 MPV 8.3 Immature Gran % (Auto) 0.5 Neut % (Auto) 74.3 H Lymph % (Auto) 15.1 L Stephens % (Auto) 9.6 H Eos % (Auto) 0.2 Baso % (Auto) 0.3 Lymph # (Auto) 1.75 Stephens # (Auto) 1.1 H Eos # (Auto) 0.0 Baso # (Auto) 0.0 Abs Immat Gran (auto) 0.06 H Absolute Neuts (auto) 8.6 H Absolute Nucleated RBC 0.000 Nucleated RBC % 0.0 Sodium 133 L Potassium 3.9 Chloride 104 Carbon Dioxide 24 Anion Gap 5 BUN 17 Creatinine 0.78 Estim Creat Clear Calc 97 Estimated GFR > 60 Glucose 162 H POC Capillary Glucose Calcium 8.1 L Blood Type Antibody Screen
--- NOTE | 2024-11-14 07:50 | PM.IMPN ---
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 - labs this AM - CBC and BMP reviewed - bowel regimen: docusate/senna, polyethylene glycol - PT/OT (2) Diabetes: Qualifiers: Diabetes mellitus complication status: without complication Diabetes mellitus salvage determiner insulin use: without fpc use Diabetes mellitus type: type 2 Qualified Code(s): E11.9 - Type 2 diabetes mellitus without complications Code(s): E11.9 - Type 2 diabetes mellitus without complications Status: Chronic Assessment and Plan: - hypoglycemia protocol - POC blood glucose ACHS - home medication: Hold Trulicity (NF) - correct regimen ordered - high dose TIDWM, based off BMI - A1C 7.4% on 10/23/2024 (3) Hypertension: Qualifiers: Hypertension type: primary hypertension Qualified Code(s): I10 - Essential (primary) hypertension Code(s): I10 - Essential (primary) hypertension Status: Chronic Assessment and Plan: - chronic, currently 153/80 - home medications: Continue lisinopril on 11/14 - monitor Plan Diet: Diabetic GI Prophylaxis: Famotidine p.o. DVT Prophylaxis: SCDs, Eliquis IV fluids: NS at 125 mL/hour x8 hours Lines/Tubes: Peripheral IV Code Status: Full code From medical stand point, patient is stable for discharge per ortho. Time Spent With Patient Time with patient: 25 - 35 minutes Subjective Date/time seen: 11/14/24 07:50 Interval history: Postop day 2 patient is alert. He is afebrile vital signs are stable. Morning labs are noted. Labs are all stable. Patient was up walking with therapy and doing exercises. Feels he did very well with that. Pain overall is very well tolerated with the pain regimen he is on. Eliquis started per ortho. His dressing is dry and intact. Neurovascularly he is intact. He is able do a straight leg raise in the bed this morning. Eager to go home. Review of Systems Review of Systems: All systems reviewed & are unremarkable except as noted in HPI and below Exam Const: General: comfortable and no acute distress Other: , male, nontoxic appearance HENMT: Face/Nose/Sinus: Normal nares present Mouth: Yes moist mucous membranes Eyes: General: appearance normal, both eyes and all related structures Sclera: sclerae normal Pupils: Equal, round and reactive pupils present EOM: EOMs intact bilaterally Resp: Effort & Inspection: normal respiratory effort Auscultation: clear to auscultation bilaterally Cardio: Rate: regular rate Rhythm: regular rhythm Other: S1-S2 present without murmur, rub, ectopy GI: Other: Abdomen soft, nondistended, nontender. Normoactive bowel sounds in all quadrants. Skin: General skin exam: normal color and no rashes or lesions noted Other: Postsurgical incision to left knee. Moderate edema. No overt tenderness. Dressing CDI. Neuro: Cranial nerves: Yes Equal, round and reactive pupils present Speech: normal speech Motor exam (neuro): 5/5 motor strength present throughout Sensory Exam: normal sensation Other: A&O x4 Extrem: General: normal to inspection Psych: Mental Status: mental status grossly normal Affect: normal affect Other: Good insight and judgment, pleasant Objective Data Vital Signs Vital Signs: Vital Signs - 24 hr 11/13/24 12:25 11/13/24 12:40 11/13/24 12:55 Temperature 99.6 F Pulse Rate 92 89 87 Respiratory Rate 18 18 16 Blood Pressure 144/80 H 158/90 H 152/97 H Pulse Oximetry 98 97 98 Oxygen Delivery Simple Face Mask Simple Face Mask Simple Face Mask Oxygen Flow Rate 6 8 8 11/13/24 13:10 11/13/24 13:25 11/13/24 13:40 Temperature Pulse Rate 83 90 90 Respiratory Rate 18 18 14 Blood Pressure 151/88 H 147/88 H 160/89 H Pulse Oximetry 99 93 94 Oxygen Delivery Simple Face Mask Room Air Nasal Cannula Oxygen Flow Rate 8 2 11/13/24 13:55 11/13/24 14:10 11/13/24 14:25 Temperature Pulse Rate 91 87 89 Respiratory Rate 20 16 16 Blood Pressure 164/80 H 154/86 H 148/82 H Pulse Oximetry 93 95 94 Oxygen Delivery Nasal Cannula Nasal Cannula Nasal Cannula Oxygen Flow Rate 2 2 2 11/13/24 14:40 11/13/24 14:55 11/13/24 15:39 Temperature Pulse Rate 85 86 Respiratory Rate 18 18 Blood Pressure 143/78 H 150/82 H Pulse Oximetry 95 95 95 Oxygen Delivery Nasal Cannula Nasal Cannula Nasal Cannula Oxygen Flow Rate 2 2 2 11/13/24 15:40 11/13/24 18:13 11/13/24 20:00 Temperature 98.8 F Pulse Rate 83 Respiratory Rate 18 Blood Pressure 153/80 H Pulse Oximetry 96 Oxygen Delivery Room Air Room Air Oxygen Flow Rate 11/13/24 22:13 11/13/24 22:39 11/14/24 02:13 Temperature 98.2 F 98.1 F Pulse Rate 56 L 76 Respiratory Rate 16 16 18 Blood Pressure 133/70 118/73 Pulse Oximetry 93 99 Oxygen Delivery Oxygen Flow Rate 11/14/24 06:00 Temperature 97.6 F Pulse Rate 62 Respiratory Rate 18 Blood Pressure 111/72 Pulse Oximetry 99 Oxygen Delivery Oxygen Flow Rate Intake/Output Intake/Output: Intake & Output 11/11/24 11/12/24 11/13/24 11/14/24 23:59 23:59 23:59 23:59 Intake Total 1690 250 Balance 1690 250 Meds/Results Medications: Active Medications Generic Name Dose Route Start Last Admin Trade Name Freq PRN Reason Stop Dose Admin Acetaminophen 650 mg 11/13/24 21:00 11/14/24 05:49 Acetaminophen 325 Mg Tablet PO 650 mg Q4H ALINE Administration Apixaban 2.5 mg 11/14/24 09:00 Apixaban 2.5 Mg Tablet PO 11/25/24 21:01 Q12HR ALINE Artificial Tears 1 drop 11/13/24 14:16 11/13/24 14:29 Artificial Tears Ophth Soln 15 Ml Bottle EACH EYE 1 drop Q2H PRN Administration Dry Eye(s) Celecoxib 200 mg 11/14/24 08:00 Celecoxib 200 Mg Capsule PO DAILY@0800 ALINE Dextrose 12.5 gm 11/13/24 19:18 Dextrose 50% 25 Gm/50 Ml Syringe IV PUSH PRN PRN Hypoglycemia Protocol Diclofenac Sodium 1 drop 11/13/24 14:40 11/14/24 05:50 Diclofenac Sodium 0.1% Ophth Soln 2.5 Ml Bottle EACH EYE 11/17/24 14:39 1 drop Q8HR ALINE Administration Diphenhydramine HCl 25 mg 11/13/24 12:27 Diphenhydramine Hcl Inj 50 Mg/Ml Vial IV PUSH Q6H PRN Itching Doxycycline Hyclate 100 mg 11/14/24 09:00 Doxycycline Hyclate 100 Mg Tablet PO Q12HR ALINE Famotidine 20 mg 11/13/24 21:00 11/13/24 21:24 Famotidine 20 Mg Tablet PO 20 mg Q12HR ALINE Administration Folic Acid 1 mg 11/14/24 09:00 Folic Acid 1 Mg Tablet PO DAILY ALINE Glucagon 1 mg 11/13/24 19:18 Glucagon For Inj 1 Mg Vial IM PRN PRN Hypoglycemia Protocol Glucose 15 gm 11/13/24 19:18 Glucose Oral Gel 15 Gm Of Glucse In 37.5 Gm Tube PO PRN PRN Hypoglycemia Protocol Cefazolin Sodium 2 gm in 50 mls @ 100 mls/hr 11/13/24 16:00 11/14/24 01:06 Ancef 2 Gm/D5w 50 Ml IVPB 11/14/24 08:29 Infused Q8H [facility] Infusion Vancomycin HCl 1,000 mg in 250 mls @ 250 mls/hr 11/13/24 19:00 11/14/24 06:05 Vancomycin 1,000 Mg/Ns 250 Ml IVPB 11/14/24 07:59 250 mls/hr Q12H ALINE Administration Dextrose 1,000 mls @ 100 mls/hr 11/13/24 19:18 Dextrose 5% 1,000 Ml IVPB PRN PRN Hypoglycemia Protocol Insulin Aspart 4 - 8 units 11/14/24 08:00 Insulin Aspart (*Bkc) 100 Units/Ml SUB-Q TIDWM [facility] Protocol Lisinopril 10 mg 11/14/24 09:00 Lisinopril 10 Mg Tablet PO DAILY [facility] Miscellaneous Information 0 each 11/13/24 00:01 Clobetasol Solution Nonform Can Pt Hold While Here? XX 12/13/24 00:00 CLARIFY [facility] Miscellaneous Information 0 each 11/13/24 00:01 Calcipotriene Nonform Can Pt Bring From Home Or Hold While Here? XX 12/13/24 00:00 CLARIFY [facility] Morphine Sulfate 2 mg 11/13/24 12:27 Morphine Sulfate (*Crx) 2 Mg/Ml Inj IV PUSH Q2H PRN Breakthrough Pain Rated 4-6 or NPO Naloxone HCl 0.1 mg 11/13/24 12:27 Naloxone Hcl 0.4 Mg/Ml Vial IV PUSH Q2M PRN Opiate Reversal Non-Formulary Medication 1 applic 11/14/24 09:00 Calcipotriene TOPICAL 12/14/24 08:59 DAILY [facility] Non-Formulary Medication 1 applic 11/14/24 09:00 Clobetasol TOPICAL 12/14/24 08:59 DAILY [facility] Ondansetron HCl 4 mg 11/13/24 12:27 Ondansetron Inj 4 Mg/2 Ml Vial IV PUSH Q4H PRN Nausea And Vomiting Oxycodone HCl 5 mg 11/13/24 12:27 Oxycodone Hcl (*Crx) 5 Mg Tab Ir PO Q4H PRN Pain Rated 7-10 Oxycodone HCl 5 mg 11/13/24 21:00 11/14/24 05:49 Oxycodone Hcl (*Crx) 5 Mg Tab Ir PO 5 mg Q4HR [facility] Administration Polyethylene Glycol 17 gm 11/14/24 09:00 Polyethylene Glycol 3350 17 Gm Powd.Pack PO QAM [facility] Prednisone 5 mg 11/14/24 09:00 Prednisone 5 Mg Tablet PO DAILY [facility] Rosuvastatin Calcium 10 mg 11/14/24 09:00 Rosuvastatin 10 Mg Tablet PO DAILY [facility] Senna/Docusate Sodium 2 tab 11/13/24 17:00 11/13/24 16:37 Senna/Docusate Sodium Tablet PO 2 tab BID ALINE Administration Radiology Results: ITS Impressions Knee X-Ray 11/13/24 14:16 IMPRESSION: 1. Left total knee arthroplasty, negative for postoperative purposes. Labs Labs: Laboratory Results - last 24 hr 11/13/24 11/13/24 11/14/24 12:28 21:41 05:47 WBC 11.6 H RBC 4.28 L Hgb 13.2 L D Hct 40.1 L MCV 93.7 MCH 30.8 MCHC 32.9 RDW 13.8 Plt Count 176 MPV 8.3 Immature Gran % (Auto) 0.5 Neut % (Auto) 74.3 H Lymph % (Auto) 15.1 L [place] % (Auto) 9.6 H Eos % (Auto) 0.2 Baso % (Auto) 0.3 Lymph # (Auto) 1.75 [place] # (Auto) 1.1 H Eos # (Auto) 0.0 Baso # (Auto) 0.0 Abs Immat Gran (auto) 0.06 H Absolute Neuts (auto) 8.6 H Absolute Nucleated RBC 0.000 Nucleated RBC % 0.0 Sodium 133 L Potassium 3.9 Chloride 104 Carbon Dioxide 24 Anion Gap 5 BUN 17 Creatinine 0.78 Estim Creat Clear Calc 97 Estimated GFR > 60 Glucose 162 H POC Capillary Glucose 284 H 243 H Calcium 8.1 L Quality VTE Prophylaxis VTE prophylaxis: mechanical ordered and pharmacologic ordered Hospitalist MIPS Advance Care Plan I have confirmed that the patient's Advanced Care Plan is present, code status is documented, or surrogate decision maker is listed in patient medical record.: Yes Medication Reconciliation I have utilized all available resources to obtain, update and review the patients current medications (includes all prescriptions, OTC, herbals, cannabis, and nutritional supplements).: Yes
[2024-11-14] MEDS: SENNA/DOCUSATE SODIUM TABLET 2 TAB PO (08:42)
[2024-11-14] MEDS: ROSUVASTATIN 10 MG TABLET PO (08:42)
[2024-11-14] MEDS: DOXYCYCLINE HYCLATE 100 MG TABLET PO (08:43)
[2024-11-14] MEDS: CELECOXIB 200 MG CAPSULE PO (08:43)
[2024-11-14] MEDS: FOLIC ACID 1 MG TABLET PO (08:43)
[2024-11-14] MEDS: FAMOTIDINE 20 MG TABLET PO (08:44)
[2024-11-14] MEDS: APIXABAN 2.5 MG TABLET PO (08:44)
--- NOTE | 2024-11-14 08:52 | P.PNAN_ITS ---
Anes - Prog Note Post-Op Date/Time: 11/14/24 08:52 Cardiovascular status: normal Respiratory status: normal Airway patency: baseline Mental status: baseline Post-Op hydration status: normal Vital Signs: Last Vital Signs Temp 36.4 C 11/14/24 06:00 Pulse 62 11/14/24 06:00 Resp 18 11/14/24 06:00 BP 111/72 11/14/24 06:00 Pulse Ox 99 11/14/24 06:00 O2 Del Method Room Air 11/14/24 07:56 O2 Flow Rate 2 11/13/24 15:39 Pain Score (VAS): 2 I/O: Intake & Output 11/13/24 11/14/24 11/14/24 23:59 07:59 15:59 Intake Total 540 250 Balance 540 250 Laboratory Tests 11/14/24 05:47 11/14/24 05:47 11/13/24 11/13/24 11/14/24 12:28 21:41 05:47 WBC 11.6 H RBC 4.28 L Hgb 13.2 L D Hct 40.1 L MCV 93.7 MCH 30.8 MCHC 32.9 RDW 13.8 Plt Count 176 MPV 8.3 Immature Gran % (Auto) 0.5 Neut % (Auto) 74.3 H Lymph % (Auto) 15.1 L [place] % (Auto) 9.6 H Eos % (Auto) 0.2 Baso % (Auto) 0.3 Lymph # (Auto) 1.75 [place] # (Auto) 1.1 H Eos # (Auto) 0.0 Baso # (Auto) 0.0 Abs Immat Gran (auto) 0.06 H Absolute Neuts (auto) 8.6 H Absolute Nucleated RBC 0.000 Nucleated RBC % 0.0 Sodium 133 L Potassium 3.9 Chloride 104 Carbon Dioxide 24 Anion Gap 5 BUN 17 Creatinine 0.78 Estim Creat Clear Calc 97 Estimated GFR > 60 Glucose 162 H POC Capillary Glucose 284 H 243 H Calcium 8.1 L 11/14/24 07:32 WBC RBC Hgb Hct MCV MCH MCHC RDW Plt Count MPV Immature Gran % (Auto) Neut % (Auto) Lymph % (Auto) [place] % (Auto) Eos % (Auto) Baso % (Auto) Lymph # (Auto) [place] # (Auto) Eos # (Auto) Baso # (Auto) Abs Immat Gran (auto) Absolute Neuts (auto) Absolute Nucleated RBC Nucleated RBC % Sodium Potassium Chloride Carbon Dioxide Anion Gap BUN Creatinine Estim Creat Clear Calc Estimated GFR Glucose POC Capillary Glucose 159 H Calcium Post-procedural complaints: none Patient Feedback: Patient satisfied with anesthetic care.
[2024-11-14 10:13] VITALS: BP 117/74; PULSE 72; RESP 18; TEMP 36.8; O2SAT 99
== END 2024-11-14 11:49 | disposition home or self-care (01) ==
LOC: ANHSURGERY 06:02 → ANH3MEDSUR 15:09
PROVIDERS: Physician Assistant Surgical; Visit Provider Orthopaedic Surgery
PROC: (CPT 27447; principal; 2024-11-13 07:30)
DX: M17.12 Unilateral primary osteoarthritis, left knee (principal); M17.5 Other unilateral secondary osteoarthritis of knee; M21.062 Valgus deformity, not elsewhere classified, left knee; M24.562 Contracture, left knee; E66.9 Obesity, unspecified; Z68.35 Body mass index [BMI] 35.0-35.9, adult; E11.9 Type 2 diabetes mellitus without complications; I10 Essential (primary) hypertension
CPT/HCPCS: 27447; 36415; 73560; 80048; 82948; 85025; 86850; 86900; 86901; 97110; 97161; 97165; 97530; A9270; C1713; C1770; C1776; J0171; J0690; J1100; J1885; J2003; J2250; J2270; J2405; J2704; J2795; J3010; J3370; J7120; J7512

== ENCOUNTER 2024-11-20 15:37 | Outpatient (CLI) | payer MEDICARE, SELFPAY ==
--- NOTE | ~2024-11-20 | US_ITS ---
EXAMINATION: US venous doppler [facility] DATE: 11/20/2024 16:31 INDICATION: left leg pain swelling . TECHNIQUE: Grayscale images without and with compression and Doppler images of the left lower extremi ty veins were obtained. COMPARISON: None FINDINGS: The left common femoral vein, profunda (deep) femoral vein, femoral vein, popliteal vein, peroneal v ein, posterior tibial veins, gastrocnemius vein, and greater saphenous vein are patent. IMPRESSION: Patent left lower extremity veins. No evidence of deep venous thrombosis. Reviewed, dictated and finalized at location K.
--- OUTSIDE RECORDS SUMMARY | 2024-11-20 15:41 | XMS_ITS | Clinical Summary ---
Author Organization [facility] Address [facility] [place] [address] Care Team Providers Care Piano Case Maker Name Role Phone Rosalia Daniellericardo Dominguez NP [...] neuropathy, without long-term current use of insulin ([facility]) BID for 1 week then daily (dispense what insurance covers) 1 kit 2023 Active Glucose Blood (IGLUCOSE TEST STRIPS) test stripIndications:Type 2 diabetes mellitus with diabetic neuropathy, without long-term current use of insulin ([facility]) BID for 1 week then daily (dispense what insurance covers) 100 strip 2 2023 Active Lancets Ultra Thin 30G MiscIndications:Type 2 diabetes mellitus with diabetic neuropathy, without long-term current use of insulin ([facility]) BID for 1 week then daily (dispense [...] total) by mouth once a week. Active HYDROcodone-acetaminop hen (NORCO) 5-325 MG tabletIndications:Director Cardiology dereck Pain Take 1-2 tablets by mouth [...] neuropathy, without long-term current use of insulin ([facility]) Inject 3 mg into the skin once a week. 2 mL 11 2024 Active rosuvastatin (CRESTOR) 10 MG tabletIndications:Pure hypercholesterolemia TAKE 1 TABLET BY MOUTH EVERY DAY 90 tablet 3 2024 Active testosterone (ANDROGEL) 50 MG of testosterone/5 GM (1%) Gel gelIndications:Hypogon adism in male PLACE 1 PACKET (50 MG OF TESTOSTERONE TOTAL) ONTO THE SKIN DAILY. 150 g 2 2024 Active rosuvastatin (CRESTOR) 10 MG tabletIndications:Pure hypercholesterolemia Take 1 tablet (10 mg total) by mouth daily. 90 tablet 3 11/09 Discontinued testosterone (ANDROGEL) 50 MG of testosterone/5 GM (1%) Gel gelIndications:Hypogon adism in male PLACE 1 PACKET (50 MG OF TESTOSTERONE TOTAL) ONTO THE SKIN DAILY. 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) 01/18/2015 Testicular hypofunction 12/26/2012 Resolved Problems Problem Noted Date Diagnosed Date Resolved Date Acute torn meniscus 08/29/2021 03/18/20 22 Encounter for preprocedural cardiovascular examination 05/02/2020 09/01/2021 Family history of hypertension 05/02/2020 01/26/2024 Encounters Date Type Department Care Team Description 10/25/[address] [address] Danielle Lindsey NP Surgical Clearance (Form faxed) 09/21/2024 Scan Shuropody INFO SRVCS Scanned, [facility] Stress Test (SCAN) 09/15/2024 11:00 AM CDT Office Visit [address] [place] [address] Danielle Lindsey NP Pre-Op Exam (Pt here today for pre-op exam.); Follow Up (Pt here for 3 month follow up with A1C and CSA.) 09/15/2024 Travel 09/14/2024 Scan [facility] INFO SRVCS Scanned, [facility] 08/29/2024 Scan [facility] INFO SRVCS Scanned, [facility] from Last 3 Months Immunizations Immunization Administration Dates Next Due Fluzone 6 Months+ Quad (0.5 mL Prefilled Syringe) 03/06/2020 Fluzone High Dose - >Age 65 (Prefilled Syringe) 02/08/2023 Influenza Adult (Generic) 01/26/2024,04/2022,02/05/2021,2019 PFIZER COVID-19 (12+) MRNA, LNP-S, PF, EFREN-SUCROSE, 30 MCG/0.3 ML (COMIRNATY) 10/06/2024,02/08/2023 PFIZER COVID-19 (MORRISSEY CAP), MRNA, LNP-S, PF, [...] Sex Assigned at Male 06/30/2024 11:27 AM SUPPLIER ENGINEER Legal Sex Male 7:32 PM CDT Gender [...] 11:03 AM CDT Height 177.8 cm (5' 10) 09/15/2024 11:03 AM CDT Body Mass Index 36.3 09/15/2024 11:03 AM CDT Plan of Treatment Upcoming Encounters Date Type Department Care Team (Late st Contact Info) Description 01/11/2025 11:00 AM CDT Office Visit [facility] [address] [place] [address] RidgewoodDanielle NP [address] [facility] [address] [place] [address] Health Maintenance Due Date Last Done Comments Kidney Health Evaluation 1955 Hepatitis C 07/23/1973 Annual Medicare Wellness Visit 07/23/2020 Lipid Panel 09/15/2024 09/16/2023, 07/16, 08/04/2022, Additional history exists Hemoglobin A1C 03/18/2025 09/15/2024, 04/16, 01/26/2024, Additional history exists COVID-19 Vaccine ( season) 2025 10/06/2024, 01/26/2024, 02/08/2023, Additional history exists Diabetes: Retinopathy Eye Exam 07/18/2025 07/19/2023 Colorectal Cancer Screening Colonoscopy (10 Years) 04/20/2027 04/20/2017 DTaP, Tdap and Td Vaccines (3 - Td or Tdap) 03/29/2034 03/29/2024, 07/29/2013 Pneumococcal Vaccine: 50+ Years Completed 02/24/2022, 02/05/2021 Zoster Vaccines Completed 08/08/2022, 06/09/2022 RSV Immunization or 60+ Years Completed 03/29/2024 PHQ-2 (Physician Applegate) Completed 06/30/2024 Meningococcal B Vaccine Aged Out No l onger eligible based on patient's age to complete this topic Meningococcal Vaccine Aged Out No estella cristina eligible based on patient's age to complete this topic RSV Immunizations Under 20 Months Aged Out No longer eligible based on patient's age to complete this topic Procedures Procedure Name Priority Date/Time Associated Diagnosis Comments STRESS TEST (SCAN ORDER) 09/21/2024 STRESS TEST (SCAN ORDER) 09/21/2024 STRESS TEST (SCAN ORDER) 09/21/2024 COLLECT.CAPILLARY (FNGR,HEEL,EAR) Routine 09/15/2024 10:53 AM CDT Type 2 diabetes mellitus with diabetic neuropathy, without long-term current use of insulin ([facility]) HEMOGLOBIN, GLYCOSYLATED Routine 09/15/2024 Type 2 diabetes mellitus with diabetic neuropathy, without long-term current use of insulin ([facility]) LIPID PANEL Routine 09/16/2023 9:01 AM CDT Pure hypercholesterolemia DIABETIC RETINOPATHY EXAM (NEGATIVE)(SCAN ORDER) Routine 07/19/2023 COLONOSCOPY GENERIC (SCAN ORDER) Routine 04/20/2017 12:00 AM SUPPLIER ENGINEER from Last 3 Months or Most Recently Relevant to Health Maintenance Results * STRESS TEST (SCAN ORDER) (09/21/2024) Only the most recent of3 resultswithin the time period is included. 09/21/2024 us [facility] Scanned SCANNING Final Resu lt * A1C (BACK OFFICE) (09/15/2024) HGB A1C 8.0 % DEVON HUDSON ([id number])ANABEL 09/15/2024 us Daniellericardo Lindsey [facility] Final Re sult -STIVEN HUDSON ([id number]), ANABEL [address] [facility] [address] [address], * LIPID PANEL (09/16/2023 9:01 AM CDT) CHOLESTEROL 135 <200 MG/DL 09/16/2023 10:02 AM CDT [facility] TRIGLYCERIDES 68 <150 MG/DL 09/16/2023 10:02 AM T [facility] HDL 43 >40.0 MG/DL 09/16/2023 10:02 AM [facility] LDL (CALCULATED) 78 <100 MG/DL 09/16/19 10:02 AM [facility] NON HDL CHOLESTEROL 92 <130 MG/DL 09/15 10:02 AM T [facility] Comment: NOTE: WHEN THE TRIGLYCERIDES ARE >200 mg/dL, NON HDL C IS A SECONDARY TARGET OF THERAPY, WITH A GOAL 30 mg/dL HIGHER THAN THE IDENTIFIED LDL C GOAL. CHOL/HDL RATIO 3.1 0.0 - 4.5 09/16/2023 10:02 AM [facility] VLDL CALCULATION 14 5 - 55 MG/DL 09/16/2023 10:02 AM [facility] LIPID INTERPRETATION 09/16/2023 10:02 AM T [facility] Comment: [facility] CONCENSUS REPORT RECOMMENDATIONS: ADULT CHILD LOW RISK: CHOLESTEROL <200 <170 TRIGLYCERIDE <150 --- HDL >=60 --- LDL <100 <110 BORDERLINE: CHOLESTEROL 200-239 170-199 TRIGLYCERIDE 150-199 --- HDL 40-59 --- LDL 100-159 110-129 HIGH RISK: CHOLESTEROL >=240 >=200 TRIGLYCERIDE >=200 --- HDL <40 --- LDL >=160 >=130 09/16/2023 9:01 AM CDT us Danielle Lindsey [employer] [facility] Final Re sult [facility] [address] [place] [address], [place] [phone] * DIABETIC RETINOPATHY EXAM (NEGATIVE) (07/19/2023) [facility] Scanned SCANNING Final Resu lt [facility] * COLONOSCOPY (04/20/2017 12:00 AM SUPPLIER ENGINEER) 04/20/2017 us Documents Scanned SCANNING Final Result Performing Organization Address City/[facility]/ZIP Co de Phone Number [facility]STIVEN SUBRAMANIAN from Last 3 Months or Most Recently Relevant to Health Maintenance Insurance [facility] Care Teams Piano Case Maker Relationship Specialty Start Date End Date Danielle Lindsey NP [address] [facility] [address] [place] [address] PCP - General Nurse Practitioner Family 11/14/21
--- OUTSIDE RECORDS SUMMARY | 2024-11-20 15:41 | XMS_ITS | Clinical Summary ---
Author Organization [facility] Address [address] [place] [address] Care Team Providers Care Veterinary Laboratory Diagnostician Name Role Phone Danielle Lindsey Genaro QUALITY CONTROL SPECIALIST Primary Care Provider Allergies Active Allergy Reactions [...] 2 tablets (1,000 mg total) by mouth warehouse analyst before breakfast 4 Active clobetasoL (TEMOVATE) 0.05 [...] Description 08/29/2024 4:30 PM CDT Procedure visit [facility] Otol[facility]ology [facility] [address] [facility] [address] [place] [address] Viviana Cabrera, CCC-A Mixed conductive and sensorineural hearing loss of left ear with restricted hearing of right ear (Primary Dx) 08/29/2024 10:00 AM CDT Office Visit [facility] Otolaryngology [address], [address] [place] [address] Ino Laird MD Conductive hearing loss of left ear with unrestricted hearing of right ear (Primary Dx); Chronic atticoantral suppurative otitis media of left ear 08/29/2024 9:40 AM CDT Procedure visit [facility] Otol[facility]ology [address], [address] [place] [address] Mixed conductive and sensorineural hearing loss of left ear with restricted hearing of right ear (Primary Dx) 08/29/2024 Telephone [facility] Otol[facility]ology [address] [place] [address] Neeta Sierra from Last 3 [...] on file Legal Sex Male 5:53 AM FEED PROJECT ENGINEER Gender Identity Not on file Sexual Orientation Not on file Obstetrics History Last Filed Vital Signs Vital Sign Reading Time Taken Comments Blood Pressure 134/70 07/21/2023 1:20 PM FEED PROJECT ENGINEER Pulse 87 07/21/2023 1:20 PM FEED PROJECT ENGINEER Temperature 36.1 C (97 F) 07/21/2023 12:50 PM FEED PROJECT ENGINEER Respiratory Rate 24 07/21/2023 1:20 PM FEED PROJECT ENGINEER Oxygen Saturation 94% 07/21/2023 1:20 PM FEED PROJECT ENGINEER Inhaled Oxygen Concentration - - Weight 118.8 kg (261 lb 12.8 oz) 2024 11:06 AM FEED PROJECT ENGINEER Height 177.8 cm (5' 10) 07/17/2024 11: 06 AM FEED PROJECT ENGINEER Body Mass Index 37.56 07/17/2024 11:06 AM FEED PROJECT ENGINEER Plan of Treatment Upcoming Encounters Date Type Department Care Team (Latest Contact Info) Description 12/15/2024 1:30 PM CDT Hospital Encounter [facility] [place] Operating Room [address] [place] [phone] Ino Laird MD [facility] [address] DEPT OTOLARYNGOLOGY, [address] [address] 12/15/2024 1:30 PM CDT - 12/15/2024 3:00 PM CDT Surgery [facility] [place] Operating Room [address] [facility] [place] [phone] Ino Laird MD [address] DEPT OTOLARYNGOLOGY, [address] [address] IMPLANTATION OSSEOINTEGRATED HEARING DEVICE SUBCUTANEOUS. Scheduled Procedures [...] history exists Medical Devices Implanted Type Area Engine Cowling Installer Device Identifier Shelf Expiration Date Model / Serial / Lot Implantech Alliedsil 3x2in Nonreinforced Permanent Implantable Thk.04in -40 - [id number] Implanted:Qty: 1 on 02/15/2023 by nIo Laird MD at [facility] Left: Ear Implantech [id number] 01/20/2027-40 / / [id number] [employer] Prosth Ossicular 3.0mm 0.75-5.75mm [facility] Concise Prtl 655-075 - [id number] Implanted:Qty: 1 on 07/21/2023 by Ino Laird MD at [facility] Left: Ear [employer] [id number] 07/16/2027 655-075 / / [id number] Procedures Procedure Name Priority Date/Time Associated Diagnosis Comments AUDBASE RESULTS 08/29/2024 9:44 AM CDT from Last 3 Months Results * AudBase Results (08/29/2024 9:44 AM CDT) Provider Scanning AUDIOLOGY SERVICES ORDERABLES Final Result from Last 3 Months Insurance MEDICARE ADVANTAGE [facility] Address: [address] [address] [place] [address] [facility] MEDICARE ADVANTAGE [facility]ICAL [facility] MEDIC[facility] Address: [address] [address] [place] [address] Care Teams Veterinary Laboratory Diagnostician Relationship Specialty Start Date End Date Danielle Lindsey NP [address] [place] [address] PCP - General Family Medicine 05/04/24
--- OUTSIDE RECORDS SUMMARY | 2024-11-20 15:41 | XMS_ITS | Referral Summary ---
Author Organization [facility] Address [address] [place] [address] Care Team Providers Care Field Crop Ii Farmworker Name Role Phone Rosalia Danielle Lee REAL ESTATE REPRESENTATIVE Primary Care Provider Encounters Date Type Department Care Team Description 08/29/2024 Telephone [facility] Otolaryngology [address] [place] [address] Neeta Sierra 08/29/2024 4:30 PM CDT Procedure visit [facility] Otolaryngology [address] [place] [address] Viviana Cabrera CCC-Lucio Mixed conductive and sensorineural hearing loss of left ear with restricted hearing of right ear (Primary Dx) 08/29/2024 9:40 AM CDT Procedure visit [facility] Otolaryngology [address] [place] [address] Mixed conductive and sensorineural hearing loss of left ear with restricted hearing of right ear (Primary Dx) 08/29/2024 10:00 AM CDT Office Visit [facility] Otolaryngology [address] [place] [address] Ino Laird MD Conductive hearing loss [...] 2 tablets (1,000 mg total) by mouth computer scientist before breakfast 4 Active clobetasoL (TEMOVATE) 0.05 [...] Preservative Free, Intramuscular 03/06/2020 Influenza, Unspecified 01/26/2024,02/05/2021 JAB Broadband SARS-CoV-2 Monovalent Vaccination (12+ Yrs) PURPLE 01/26/2024,07/29/2020 [...] on file Legal Sex Male 5:53 AM FINISHER MAP AND CHART Gender Identity Not on file Sexual Orientation Not on file Last Filed Vital Signs Vital Sign Reading Time Taken Comments Blood Pressure 134/70 07/21/2023 1:20 PM FINISHER MAP AND CHART Pulse 87 07/21/2023 1:20 PM FINISHER MAP AND CHART Temperature 36.1 C (97 F) 07/21/2023 12:50 PM FINISHER MAP AND CHART Respiratory Rate 24 07/21/2023 1:20 PM FINISHER MAP AND CHART Oxygen Saturation 94% 07/21/2023 1:20 PM FINISHER MAP AND CHART Inhaled Oxygen Concentration - - Weight 118.8 kg (261 lb 12.8 oz) 2024 11:06 AM FINISHER MAP AND CHART Height 177.8 cm (5' 10) 07/17/2024 11: 06 AM FINISHER MAP AND CHART Body Mass Index 37.56 07/17/2024 11:06 AM FINISHER MAP AND CHART Plan of Treatment Upcoming Encounters Date Type Department Care Team (Latest Contact Info) Description 12/15/2024 1:30 PM CDT Hospital Encounter [facility] Operating Room [address] [place] [address] Ino Laird MD [address] DEPT OTOLARYNGOLOGY, [place] [id number] 12/15/2024 1:30 PM CDT - 12/15/2024 3:00 PM CDT Surgery [facility] Operating Room [address] [place] [place] [address] Ino Laird MD [address] DEPT OTOLARYNGOLOGY, [address] [phone] IMPLANTATION OSSEOINTEGRATED HEARING DEVICE SUBCUTANEOUS. Scheduled Procedures Name Priority Associated Diagnoses Date/Ti me IMPLANTATION OSSEOINTEGRATED HEARING DEVICE SUBCUTANEOUS. Conductive hearing loss of left ear with unrestricted hearing of right ear 12/15/2024 1:30 PM CDT Medical Devices Implanted Type Area Management Development Specialist Device Identifier Shelf Expiration Date Model / Serial / Lot Implantech Alliedsil 3x2in Nonreinforced Permanent Implantable Thk.04in 23-700-40 - [id number] Implanted:Qty: 1 on 02/15/2023 by Ino Laird MD at [facility] [place] Left: Ear Implantech [id number] 01/20/2027 23-700-40 / / [id number] [employer] Prosth Ossicular 3.0mm 0.75-5.75mm Ti Cntr Pyrites Concise Prtl 655-075 - [id number] Implanted:Qty: 1 on 07/21/2023 by Ino Laird MD at [facility] [place] Left: Ear [employer] [id number] 07/16/2027 655-075 / / [id number] Procedures Procedure Name Priority Date/Time Associated Diagnosis Comments AUDBASE RESULTS 08/29/2024 9:44 AM CDT from Last 3 Months Results * AudBase Results (08/29/2024 9:44 AM CDT) Provider Scanning AUDIOLOGY SERVICES ORDERABLES Final Result from Last 3 Months Insurance UHC MEDICARE ADVANTAGE [facility] Address: [facility] [address] [place] [address] UHC MEDICARE ADVANTAGE [facility] Address: [address] [address] Care Teams Field Crop Ii Farmworker Relationship Specialty Start Date End Date Danielle Lindsey NP [address] [facility] [address] [place] [address] PCP - General Family Medicine 05/04/24
--- OUTSIDE RECORDS SUMMARY | 2024-11-20 15:42 | XMS_ITS | Clinical Summary ---
Author Organization [facility] Address [address] [place] [address] Care Team Providers Care Ski Production Supervisor Name Role Phone Unavailable Primary Care Provider Unavailabl e Social History Tobacco Use Types Packs/Day Years Used Date Smoking Tobacco: Never Assessed Sex and Gender Information Value Date Recorded Sex Assigned at Not on file Legal Sex Male 1:13 PM LUMBER GRADER Gender Identity Not on file Sexual Orientation [...]
--- OUTSIDE RECORDS SUMMARY | 2024-11-20 15:42 | XMS_ITS | Clinical Summary ---
Author Organization [facility] Address [address] [place] [address] Care Team Providers Care Kid Club Attendant Name Role Phone Jr Penn MD Primary Care Provider [phone] Source Comments [facility],non-owned Affiliates and Associated Physician Practices is amultiple site organization consisting of ambulatory clinics and hospital sitesin [place], [place], [place] and [place]. This disclosure is being madepursuant to the Care Everywhere program and may not contain all information available regarding this patient. Last updated 18.[facility] [employer] Allergies Active Allergy Reactions Criticality Noted Date [...] Immunizations Immunization Administration Dates Next Due Covid Nanoogo primary monoval ent 12+ yr 0.3mL Purple [...] SCREENING 05/17/2024 MEDICARE AWV CALENDAR YEAR 2024 INFLUENZA VACCINE (#1) 2025 4, 02/25/2022, 02/05/2021, Additional history exists SCREENING FOR DIABETES 09/16/2027 5, 06/29/2024, 10/16/2020, Additional history exists LIPID TESTING [...] 7 - 26 mg/dL 10/16/2020 10:49 AM [facility] Creatinine 0.93 0.71 - 1.16 mg/dL 10/16/2020 10:49 AM [facility] Sodium 139 136 - 145 mmol/L 10/16/2020 10:49 AM [facility] Potassium 4.6(H) 3.5 - 4.5 mmol/L 10/16/2020 10:49 AM [facility] Chloride 102 98 - 107 mmol/L 10/16/2020 10:49 AM [facility] CO2 30(H) 22 - 29 mmol/L 10/16/2020 10:49 AM [facility] Glucose 112 70 - 115 mg/dL 10/16/2020 10:49 AM [facility] Calcium 9.4 8.4 - 10.2 mg/dL 10/16/2020 10:49 AM [facility] Anion Gap 12 8 - 18 10/16/2020 10:[address] [facility] BUN/Creatinine Ratio 16 7 - 23 10/16/2020 10:49 AM [facility] Osmolality Calculated 290 270 - 300 mOsm/kg 10/16/2020 10:49 AM [facility] eGFR by CKD-EPI 86(L) >=90 mL/min/1.7 3 m2 10/16/2020 10:49 AM [facility] Blood BLOOD SPECIMEN / Unknown Lab Venipuncture / Unknown 10/16/2020 10:09 AM CDT 10/16/2020 10:17 AM T Xin Vallejo TOOL AND DIE SUPERVISOR-ASSOCIATE PROFESSOR OF KINESIOLOGY LAB - CHEMISTRY O RDERABLES Final Result [facility] [address] [place] [address], [facility] [phone] from Last 3 Months or Most Recently Relevant to Health Maintenance Insurance [id number] MANAGED MEDICARE ADV UHC MANAGED MEDICARE ADV Advance Directives * Full Code (Latest Code Status on File) Date Activated Date Inactivated Comments 11/05/2020 3:34 PM 11/06/2020 5:33 PM Care Teams Kid Club Attendant Relationship Specialty Start Date End Date Jr Penn MD PCP - General Family Medicine 02/06/19
--- OUTSIDE RECORDS SUMMARY | 2024-11-20 15:42 | XMS_ITS | Encounter Summary ---
Author Organization [facility] Address [facility] [place] [address] Care Team Providers Care Grain Oilseed Or Pasture Farm Manager Name Role Phone Jr Penn MD Primary Care Provider [phone] Jr Penn MD Primary Care Provider [phone] Jr Penn MD Primary Care Provider [phone] Danielle Lindsey NP Primary Care Provider + Km Varner MD Unavailable Unavailable Encounter Details Date Type Department Care Team (Late st Contact Info) Description 08/16/2013 Abstract [facility] Clinics Conversion Md, Generic ConversionMD Social History Tobacco Use Types Packs/Day Years Used Date Smoking Tobacco: Never Assessed Sex and Gender Information Value Date Recorded Sex Assigned at Male 06/30/2024 11:27 AM BUS PERSON Legal Sex Male 7:32 PM CDT Gender Identity Not on file Sexual Orientation Not on file documented as of this encounter Plan of Treatment Upcoming Encounters Date Type Department Care Team (Late st Contact Info) Description 01/11/2025 11:00 AM CDT Office Visit [facility] [address] [place] [address] Danielle Lindsey NP [address] [facility] [address] [place] [address] documented as of this encounter Visit Diagnoses Not on filedocumented in this encounter Care Teams Grain Oilseed Or Pasture Farm Manager Relationship Specialty Start Date End Date Jr Penn MD PCP - General 04/19/14 11/13/21 Jr Penn MD PCP - General 01/04/14 04/18/14 Jr Penn MD PCP - General 07/15/13 01/03/14 Danielle Lindsey NP [address] [facility] [address] [place] [address] PCP - General Nurse Practitioner [facility] 11/14/21 Km Varner MD [address] [facility] [address] [place] [address] Consulting Physician UROLOGY 03/18/22 03/15/23 documented as of this encounter
--- OUTSIDE RECORDS SUMMARY | 2024-11-20 15:42 | XMS_ITS | Encounter Summary ---
Author Organization [facility] Address [facility] [place] [address] Care Team Providers Care Engraver Automatic Name Role Phone Jr Penn MD Primary Care Provider [phone] Jr Penn MD Primary Care Provider [phone] Jr Penn MD Primary Care Provider [phone] Danielle Lindsey NP Primary Care Provider + Km aVrner MD Unavailable Unavailable Encounter Details Date Type Department Care Team (Late st Contact Info) Description 08/22/2013 Abstract [facility] Clinics Conversion Md, Generic ConversionMD Social History Tobacco Use Types Packs/Day Years Used Date Smoking Tobacco: Never Assessed Sex and Gender Information Value Date Recorded Sex Assigned at Male 06/30/2024 11:27 AM FACTORY LAY OUT ENGINEER Legal Sex Male 7:32 PM CDT Gender Identity Not on file Sexual Orientation Not on file documented as of this encounter Plan of Treatment Upcoming Encounters Date Type Department Care Team (Late st Contact Info) Description 01/11/2025 11:00 AM CDT Office Visit [facility] [address] [place] [address] Danielle Lindsey NP [address] [facility] [address] [place] [address] documented as of this encounter Visit Diagnoses Not on filedocumented in this encounter Care Teams Engraver Automatic Relationship Specialty Start Date End Date Jr Penn MD PCP - General 04/19/14 11/13/21 Jr Penn MD PCP - General 01/04/14 04/18/14 Jr Penn MD PCP - General 07/15/13 01/03/14 Danielle Lindsey NP [address] [facility] [address] [place] [address] PCP - General Nurse Practitioner [facility] 11/14/21 Km Varner MD [address] [facility] [address] [place] [address] Consulting Physician UROLOGY 03/18/22 03/15/23 documented as of this encounter
== END 2024-11-20 15:38 | disposition home or self-care (01) ==
PROVIDERS: Visit Provider Physician Assistant Surgical
DX: R60.0 Localized edema (principal)
CPT/HCPCS: 93971